=== PATIENT | female | born 1965 | race Caucasian/White ===

== ENCOUNTER 2023-09-24 12:42 | Outpatient (CLI) | payer OTHER, SELFPAY ==
--- OUTSIDE RECORDS SUMMARY | 2023-09-24 12:49 | XMS_ITS | Clinical Summary ---
Author Organization [facility] Address [place], [place] [address] Care Team Providers Care Physician Practice Administrator Name Role Phone Kelvin Peres MD Primary Care Provider Unavailable Allergies No known active allergies Medications Medication Sig Dispensed Refills Start Date End Date Status IBUPROFEN ORAL Take 400 mg by mouth every 4 hours if needed (pain or headache). Active valACYclovir (VALTREX) 1 gram tablet Take 2 tablets by mouth every 12 hours if needed for outbreaks. 12 tablet 3 09/06/2018 Active multivitamin capsule 1 tab oral daily. 03/18/2016 Active valACYclovir (VALTREX) 1 gram tablet Take 1 tablet (1,000 mg total) by mouth 3 (three) times a day for 7 days. 21 Tablet 12/18/2020 Active valACYclovir (VALTREX) 1 gram tablet Take 1 tablet (1,000 mg total) by mouth 3 (three) times a day. 21 Tablet 05/22/2021 Active amoxicillin-clavulana te 875-125 mg tablet (AUGMENTIN) Take 1 tablet by mouth 2 (two) times a day for 7 days. 14 Tablet 08/25/2021 Active benzonatate (TESSALON) 100 mg capsuleIndications:Co ugh, unspecified type Take 1 Capsule (100 mg) by mouth 3 times daily if needed for Cough. 21 Capsule 02/17/2022 Active Active Problems Problem Noted Date Diagnosed Date Premenopausal menorrhagia 02/16/2011 Immunizations Name Administration Dates Next Due Influenza A (H1N1), Inactivated (Age >=3 Years) 05/21/2009 Influenza, IIV3 (Age >=3 years) 03/13/2009 Td (Age >=7 Years) 08/31/2002 Tdap 05/24/2012 Social History Tobacco Use Types Packs/Day Years Used Date Smoking Tobacco: Never Smokeless Tobacco: Never Alcohol Use Standard Drinks/Week Comments Yes 0 (1 standard drink = 0.6 oz pur e alcohol) occasional 1 every week or two Sex and Gender Information Value Date Recorded Sex Assigned at Not on file Gender Identity Not on file Sexual Orientation Not on file Obstetrics History Last Filed Vital Signs Vital Sign Reading Time Taken Comments Blood Pressure 128/67 02/17/2022 2:03 PM DRY PLASTERER Pulse 61 02/17/2022 2:03 PM DRY PLASTERER Temperature 36.8 ??C (98.2 ??F) 02/17/2022 2:03 PM CS T Respiratory Rate 17 02/17/2022 2:03 PM DRY PLASTERER Oxygen Saturation 96% 02/17/2022 2:03 PM DRY PLASTERER Inhaled Oxygen Concentration - - Weight 93.4 kg (206 lb) 02/17/2022 2:03 PM DRY PLASTERER Height 168.5 cm (5' 6.34) 09/26/2018 10:30 AM C DT Body Mass Index 32.91 09/26/2018 10:30 AM CDT Plan of Treatment Health Maintenance Due Date Last Done Comments Depression screening for age 12+ 1978 HIV for age 15-65 1981 BMI (ht and wt on same day) for age 18+ 1984 Hepatitis C screening for ag e 18-79 1984 Pap test for age 21-65 1987 Lipids for age 45-75 2011 Mammogram for age 45-75 2011 Zoster (shingles) series for age 50+ (1 of 2) 2016 Tetanus booster 05/24/2022 05/24/2012, 08/31/2002 COVID-19 vaccine series ( season) 2022 02/19/2021, 07/30/2020, 07/03/2020 Influenza for age 50-64 12/05/2023 05/21/19 10, 03/13/2009 Colonoscopy through age 75 09/26/2028 09/26/2018 Tdap Completed 05/24/2012 Pneumococcal series for age 6-64 Aged Out No longer eligible b ased on patient's age to complete this topic Procedures Procedure Name Priority Date/Time Associated Diagnosis Comments COLONOSCOPY 09/26/2018 12:28 PM CDT from Last 3 Months or Most Recently Relevant to Health Maintenance Results * COLONOSCOPY (09/26/2018 12:28 PM CDT) 09/26/2018 12:2 8 PM CDT Narrative Transcriptions Khang Damian MD - 09/26/2018 1:11 PM CDT Patient Name: Fiordaliza Tsang Procedure Date: 09/26/2018 Gender: Female Date of : 1965 Admit Type: Ambulatory Procedure: Colonoscopy Proceduralist: Khang Damian [facility], Cricket Beckford MD (Treasury Director) Referring MD: Tierney Serrano Indications/Pre-Op Diagnosis: Surveillance: Personal history ofadenomatous polyps on last colonoscopy 5 years ago (also father of colon cancer at age 60) Medications: Propofol per Anesthesia Procedure Description: The procedure, indications, potential complications, (bleeding, perforation, infection, adverse medication reaction, missed lesionsor polyps) and alternatives available were explained to the patient, who appeared to understand and indicated this. Opportunity for questionswas provided and informed consent obtained. The colonoscope was passed through the anus and advanced to 6 cm into the ileum. The colonoscopy was somewhat difficult due to a redundant colon and significant looping. Successful completion of the procedure was aided by applying abdominal pressure. The patient tolerated the procedure well. The quality of the bowel preparation was evaluatedusing the BBPS ([place] Bowel Preparation Scale) with scores of: Right Colon= 3, Transverse Colon = 3 and Left Colon = 3. The total BBPS scoreequals 9. The quality of the bowel preparation was excellent. Complications: No immediate complications. Estimated blood loss: None. Estimated Blood Loss & Specimen: Specimen collected: None Findings: The terminal ileum appeared normal. The entire examined colon appeared normal on direct and retroflexion views. Impressions/Post-Op Diagnosis: - The examined portion of the ileum was normal. - The entire examined colon is normal on direct and retroflexionviews. - No specimens collected. Recommendation: - Repeat colonoscopy in 5 years for surveillance. Moderate Sedation: All monitoring and sedation per anesthesia. Khang Damian, 09/26/2018 1:11:23 PM This report has been signed electronically. Note Initiated On: 09/26/2018 12:28 PM Procedure Code(s): --- Professional --- G0105, Colorectal cancer screening; colonoscopy on individual at high risk Diagnosis Code(s): --- Professional --- Z86.010, Personal history of colonic polyps CPT copyright 2017 [employer]. All rights reserved. The codes documented in this report are preliminary and upon vocational rehabilitation specialist reviewmay be revised to meet current compliance requirements. Khang Damian MD PROCEDURE ORD from Last 3 Months or Most Recently Relevant to Health Maintenance Advance Directives * Full Code (Latest Code Status on File) Date Activated Date Inactivated Comments 09/26/2018 10:46 AM 09/26/2018 4:27 PM * Full Code Date Activated Date Inactivated Comments 07/19/2013 10:00 AM 07/19/2013 7:04 PM * Full Code Date Activated Date Inactivated Comments 02/16/2011 3:56 PM 02/18/2011 12:21 AM * Full Code Date Activated Date Inactivated Comments 02/16/2011 11:15 AM 02/16/2011 3:56 PM Care Teams Physician Practice Administrator Relationship Specialty Start Date End Date Kelvin Peres MD PCP - General 06/20/09
--- OUTSIDE RECORDS SUMMARY | 2023-09-24 12:49 | XMS_ITS | Data Portability ---
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 I reviewed the pathophysiology of the disorder, potential contributing and risk factors as well as treatment options to address their complaints. I discussed the pros and cons of advanced imaging. From a treatment perspective I recommended a rehabilitative treatment approach. Treatment begins with home self management designed to rest the muscles of mastication and reduce inflammation in the temporomandibular joints. This includes heat and ice compresses, eating a soft food or pain-free diet, bilateral chewing identifying and decreasing daytime muscle tension and modification of their sleep position. Today I taught simple jaw exercises designed to improve the jaw mechanics and movement, improve range of mouth opening and improve TM joint fluid circulation to facilitate healing. This includes relaxed breathing and jaw massage. This was both demonstrated and given in written format. Concurrently I taught proper posture.Beyond self management I believe that they would benefit from a mandibular intraoral appliance. I've started her on and today a prescription for medrol dospak and methocarbamol 750 mg qhs, was provided to the patient. The risks and benefits associated with the prescribed medication was discussed with the patient today. Patient was asked to discontinue medication intake and return to clinic if significant side effects were noted from the medication. In addition I've recommended rehabilitation with physical therapy. She will see our physical therapist in [place], where closer to her. I reviewed [employer] [facility] [place]? Medical Policy for diagnosis and treatment of TMD and made the patient aware that this policy requires them to see a medical doctor to rule out a list of other causes for their TMD symptoms and for the doctor to document that the cause of their TMD-like symptoms is due to TMD and no other medical condition. Their medical doctor needs to provide the patient, and us, with this documentation. They were advised to see their medical doctor. They will need to trial a maximum tolerated dose of an NSAID, or similar pain medication. They will also need to have a panoramic radiograph of their maxillofacial region to show internal derangement or ? arthritic changes? , although this radiograph often misses arthritic changes and cannot be used to assess for an internal derangement. Nonetheless, these are the criteria required by their insurance ([facility]) to consider the treatment of their TMD to be medically necessary. Panoramic imaging was obtained at [facility] s appointment. I suggested that they contact their insurance should they have questions regarding their policy or feel the need for further clarification. Finally, I suggested that once they meet these criteria set by their insurance and they have the necessary documentation, that they send this information to me for my review. At that time, we will complete prior authorization for treatment if the documentation is complete. The goal of treatment is to improve pain, function and focus on long-term self-management strategies. I believe that by following these treatment recommendations there is a good prognosis for reduction of symptoms. History was obtained from the patient. The patient has 5+ diagnoses they would like to address. This case is moderate complexity because of multiple diagnoses with chronic symptoms. Risk of complications include progressive disease/symptoms. Today time spent may have included a review of past records, history taking, review of diagnoses, contributing factors, treatment plan, diagnostic testing, prognosis, expectations, risks and complications of treatment/no treatment, discussions with other providers and completing documentation was 60 minutes. Cost of care and insurance coverage was reviewed and discussed with the patient. Due to jaw pain disorder that is aggravated when she talks a lot at work, I am recommending that her job be modified for three weeks by working from home to reduce the amount of talking she has to do. She also needs breaks throughout the workday to do her self-care that I already prescribed for her medications to help reduce her jaw pain. The self-care includes applying heat to her jaw for 20 minutes 3 to 4 times day. kalli Not available 07/30/2022 17:20:03 08/05/2022 08/05/2022 Patient presents to therapy with signs and symptoms consistent with the ICD 10 diagnoses noted below. Main findings include: subacute L TMJ disc displacement with reduction in mid-range. Condition is evolving with moderate irritability and personal factors/comorbidit ies affecting the plan of care (see history section for list of factors). These findings limit the pt from participation in the following functional activities: headaches and pain speaking during workday, . Treatment plan to include reducing myalgia, increasing joint ROM, teaching self management strategies and strengthening to provide long-term symptom reduction. The patient was educated on the risks/benefits of physical therapy and the anatomy pertaining to their present condition. The physical therapy POC and goals were discussed with the patient and all present questions/concerns were addressed. Pt agrees to treatment plan. Rehabilitation potential is good. Treatment to include: therapeutic exercise, manual therapy, neuro muscular re education, therapeutic activities, self care, possible dry needling and modalities as needed. Frequency: will be 2>1/weeks for 6-8 weeks, tapering as able for a total of 6 visits over 2 months. lhovda Not available 08/05/2022 10:55:46 08/21/2022 08/21/2022 Michelle is doing great with resolution of her headaches. Some myalgia remains but I expect this will resolve with another week of working on it. [email or web address] Not available 08/21/2022 09:49:44 08/26/2022 08/26/2022 Dry needling performed today to help resistant L masseter fully relax. Michelle reported feeling better by the end of the session and will let Dr. Johnson know how it was at her followup tomorrow. lhovda Not available 08/26/2022 09:48:23 08/27/2022 08/27/2022 Today I reviewed the diagnosis, contributing factors and treatment options. I reviewed and reinforced continued use of self care and home exercises. I encouraged daily home care use which may consist of heat and ice compresses, oral habit reduction and relaxation techniques. History today was obtained from the patient. The patient has 4 diagnoses which we are addressing. Their symptoms are significantly improved. This case is moderate complexity because of multiple diagnoses with chronic symptoms. Risk of complications include disease/symptom progression were discussed. Today time spent may have included a review of past records, history taking, review of diagnoses, contributing factors, treatment plan, diagnostic testing, prognosis, expectations, risks and complications of treatment/no treatment, discussions with other providers and completing documentation was 35 minutes. I suggested that (s)he return for follow-up care in 2-4 weeks. kalli Not available 08/27/2022 13:07:18 09/08/2022 09/08/2022 Found R side masseter tenderness today, L is much better. Due to this will followup one more time to asses modifications to HEP and treatment performed today. [email or web address] Not available 09/08/2022 17:57:17 Plan of Treatment Reminders Order Date Submit Date Provider Last Modified By Organization Details Last Modified Time Details Appointments None recorded. Lab None recorded. Referral physical therapist referral 2022 023 kalli Del Real PT, [address] [facility], [address], [place], [address], 14:24:51 Procedures None recorded. Surgeries None recorded. Imaging XR, orthopantog jovan 2022 023 [place] [address] [facility] [address], [place], [address], 14:31:13 Medication Orders Medrol (Pablo) 4 mg tablets in a dose pack 2022 023 [facility], [address] [place] [address], [id number], 14:24:59 methocarbam ol 750 mg tablet 2022 023 [facility]57, [address] [place] [address], [id number], 14:24:57 Patient Targets Encounter Date Encounter Id Patient Goals Patient Target Last Modified By Organization Details Last Modified Time Short term goals (to be met in 3 weeks):*Pt will decrease muscle tension and muscle guarding habits through education in order to decrease pain allowing for improved tolerance to eating meals with minimal modification.*Pt will be independent with home exercise program while demonstrating compliance and safety in order to return to prior level of function with goal of 2 point symptom reduction during 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 ovda Not available 08/05/2022 10:55:49 Patient Instructions Encounter Date Encounter Id Patient Instructions Last Modified By Organization Details Last Modified Time 09/08/2022 [id number] Total treatment time minutes today =46 Next Visit Plan: Did R side masseter calm down? L still good? 1 more visit planned. Goals: resolve clicking and headaches. Progress Note Date: 09/16 [email or web address] Not available 09/08/2022 17:58:44 08/26/2022 [id number] Total treatment time minutes today = 30 Next Visit Plan: Reassess and if still doing well, might be ready for DC. Followup in 2 weeks prn. How was Dry needling? Goals: resolve clicking and headaches. Progress Note Date: 09/16 lhovda Not available 08/26/2022 09:49:11 08/21/2022 [id number] Total treatment time minutes today = 35 Next Visit Plan: Reassess and if still doing well, might be ready for DC. Goals: resolve clicking and headaches. Progress Note Date: 09/16 lhovda Not available 08/21/2022 09:51:13 08/05/2022 [id number] Total treatment time minutes today = 45 Next Visit Plan: how is clicking? Less headaches? May need to work on masseter tension NV. Goals: resolve clicking and headaches. Progress Note Date: 09/16 lhovda Not available 08/05/2022 10:55:51 07/30/2022 [id number] Self Care for TMD [email or web address] Not availab le 07/30/2022 14:24:50 Three Jaw Exercises [email or web address] Not available 07/30/2022 14:24:51 oral appliance preparation* STU Not available 07/31/2022 17:53:27 Contributing factors identified at today's appointment include: poor posture, daytime clenching, sleep bruxism, oral habits, stress and tension and difficulty relaxing. [email or web address] Not available 07/30/2022 14:10:30 Reason for Referral Physical Therapist Referral for Pain of left temporomandibular joint Referring Physician: Josafat Johnson, Pain Management, Encounter Date: 07/30/2022 Results Created Date Observation Date Name Description Value Unit Range Abnormal Flag LastModifiedBy Organization Detail LastModifiedTime 07/31/19 23 07/31/2022 XR, ortho panto gram No observ ation record ed. [address], [address], 07/31/2022 17:53:43 08/28/19 oral appli ance prepa ratio n* No observ ation record ed. [email or web address] [address] [place], [address], 08/27/2022 11:08:35 08/28/19 23 oral appli ance prepa ratio n* No observ ation record ed. [address] [facility] [place], [address], 08/27/2022 13:04:22 08/28/19 23 XR, ortho panto gram No observ ation record ed. [email or web address] Not Available 11:26:41 Result Notes None recorded. Problems Name Status Onset Date Resolution Date Notes Provider Name and Address Organization Details Recorded Time Temporal headache Active 2022 headache attributed to TMD PATHAMAS MITTMAN, DDS [address], [place], [address], [place] [facility] 3 14:09:43 Myofascial pain Active 2022 masticatory PATHHALIMA JOHNSON, DDS [address], [place], [address], [facility] 3 14:09:56 Pain of left temporomandibular joint Active 2022 JOSAFAT JOHNSON, DDS [address], [place], [address], [facility] 3 14:09:29 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 Procedures Surgical History Date Name Laterality Status Provider Name and Address Organization Details Recorded Time 09/29/19 23 42231 - PT ReEval cancelled Priti Del Real DPT [address] [facility] [address], [place], [address], [facility] 09/28/2022 08:20:26 09/29/19 23 43882: Self Care/Home Management Training cancelled Priti Del Real DPT [address], [place], [address], [facility] 09/28/2022 08:19:56 09/29/19 23 85361: Therapeutic Exercise cancelled Priti Del Real DPT [address], [place], [address], [facility] 09/28/2022 08:19:56 09/29/19 23 94223: Neuromuscular Re-Education cancelled Priti Del Real DPT [address], [place], [address], [place] [facility] 09/28/2022 08:19:56 09/29/19 92963: Manual Therapy cancelled Priti Del Real, NINOT [address], [place], [address], [place] [facility] 09/28/2022 08:19:56 09/29/19 98376: Therapeutic Activities cancelled Priti Del Real, DPT [address], [place], [address], [place] [facility] 09/28/2022 08:19:56 09/09/19 85968: Therapeutic Exercise completed Priti Del Real, NINOT [address], [place], [address], [facility] 09/08/2022 17:58:34 09/09/19 87518: Manual Therapy completed Priti Del Real, NINOT [address], [place], [address], [place] [facility] 09/08/2022 17:58:40 08/27/1960: Needle insertion(s) without injection(s), 1 or 2 muscle(s) completed Priti Del Real DPT [address], [place], [address], [place] [facility] 08/26/2022 09:49:30 08/27/19 01883: Therapeutic Exercise completed Priti Del Real, DPT [address], [place], [address], [place] [facility] 08/26/2022 09:50:05 08/27/19 86859: Manual Therapy completed Priti Del Real, DPT [address], [place], [address], [facility] 08/26/2022 09:49:44 08/22/19 72287: Therapeutic Exercise completed Priti Del Real, DPT [address], [place], [address], [place] [facility] 08/21/2022 09:51:08 08/22/19 63139: Manual Therapy completed Priti Del Real, DPT [address], [place], [address], [place] [facility] 08/21/2022 09:50:58 08/06/19 88075 - PT Eval Moderate Complexity completed Priti Del Real, DPT [address], [place], [address], [place] [facility] 08/05/2022 10:53:13 08/06/19 80301: Self Care/Home Management Training completed Priti Del Real, DPT [address], [place], [address], [place] [facility] 08/05/2022 10:53:23 08/06/19 13420: Therapeutic Exercise completed Priti Del Real, DPT [address], [place], [address], [place] [facility] 08/05/2022 10:53:19 08/06/19 77308: Manual Therapy completed Priti Del Real, DPT [address], [place], [address], [place] [facility] 08/05/2022 10:53:16 07/31/19 23 Orthopantogram completed JOSAFAT JOHNSON DDS [address], [place], [address], [place] [facility] 07/30/2022 14:04:48 07/21/19 08 procedure on brain [facility] 07/30/2022 10:53:12 Imaging Results Imaging Date Name Status LastModified by Organization Details LastModified Time 07/31/2022 XR, orthopantogram completed kalli Mccrary [address] [facility] [address], [place], [address], 07/31/2022 17:53:43 08/27/2022 oral appliance preparation* completed [email or web address] [address], [place], [address], 08/27/2022 11:08:35 08/27/2022 oral appliance preparation* completed [address] , [place], [address], 08/27/2022 13:04:22 08/27/2022 XR, orthopantogram completed [email or web address] Info rmation not available 08/27/2022 11:26:41 Procedure Notes None recorded. Medical Equipment None Reported. Allergies No known drug allergies Medications Name Sig Start Date Stop Date Status Note LastModified by Organization Details LastModified Time prednisone 20 mg tablet TAKE 2 TABLETS BY MOUTH ONCE DAILY FOR 5 DAYS 07/30 completed Not Available Not Available Not Available methocarbam ol 750 mg tablet TAKE 1 TABLET BY MOUTH ONCE DAILY AT BEDTIME FOR 14 DAYS active Not Available Not Available No t Available benzonatate 100 mg capsule TAKE 1 CAPSULE BY MOUTH THREE TIMES DAILY NEEDED FOR COUGH 07/30 completed Not Available Not Available Not Available methylpredn isolone 4 mg tablets in a dose pack TAKE BY MOUTH DIRECTED ON INSIDE OF PACKAGE - DO NOT TAKE WITH IBUPROFEN active Not Available Not Available No t Available cefdinir 300 mg capsule TAKE 2 CAPSULES BY MOUTH EVERY 24 HOURS FOR 5 DAYS 07/30 completed Not Available Not Available Not Available amoxicillin 875 mg-potassiu m clavulanate 125 mg tablet TAKE 1 TABLET BY MOUTH TWICE DAILY FOR 7 DAYS 07/30 completed Not Available Not Available Not Available cyclobenzap rine 5 mg tablet TAKE 1 TO 2 TABLETS BY MOUTH AT BEDTIME NEEDED FOR MUSCLE SPASM 07/30 completed Not Available Not Available Not Available ibuprofen active Not Available Not Michelle ilable Not Available Flonase Allergy Relief active Not Available Not Available Not Available Vitals Date Recorded Body height Body mass index (BMI) Body weight Provider Name and Address Organization Details Last Updated DateTime 07/30/2022 167.64 cm 33.1 kg/m2 41702.44 g Eileen OLIVARES [facility] 07/30/2022 10:48:13 Date Recorded Body height Body mass index (BMI) Body weight Heart rate Systolic blood pressure Diastolic blood pressure Provider Name and Address Organization Details Last Updated DateTime 167.64 cm 30.7 kg/m2 10767.5 5 g 58 /min 122 mm[Hg] 80 mm[Hg] Eileen OLIVARES [facility] 3 10:34:12 Social History Question Answer Notes LastModified by Kangou Details LastModified Time Tobacco Smoking Status Never Smoker Eileen agosto [facility] 07/30/2022 10:52:25 What Is Your Level Of Alcohol Consumption? Occasional [email or web address] Information not available 07/30/2022 What Is Your Level Of Caffeine Consumption? Occasional [email or web address] Information not available 07/30/2022 What Type Of Diet Are You Following? REGULAR [email or web address] Information not available 07/30/2022 What Is The Highest Grade Or Level Of School You Have Completed Or The Highest Degree You Have Received? [id number] [email or web address] Information not available 07/30/2022 What Is Your Relationship Status? [email or web address] Information not available 07/30/2022 Sex: Female Functional Status Question Answer Note LastModified by Kangou Details LastModified Time What is your exercise level? Occasional [email or web address] Information not available 07/30/2022 Mental Status None recorded. Family History Relationship Description Onset Age of this Age Resolved Age Notes Mother Heart disease Medical History Condition Response Neck Injury Y Back pain Y Head Trauma/Injury Y Headaches Y Back Injury Y Gynecological HistoryNo gynecological history recorded. Obstetrics History GPAL:G 0 P 0 0 0 0 Immunizations Vaccine Type Date Status Provider Name and Address Organization Details Recorded Time influenza nasal, unspecified formulation 01/29/2022 amita agosto [facility] 07/30/2022 10:50:44 SARS-COV-2 (COVID-19) vaccine, UNSPECIFIED 02/25/2022 amita agosto [facility] 07/30/2022 10:51:15 Past Encounters Encounter ID Performer Location Encounter Start Date Encounter Closed Date Diagnosis/Indication Diagnosis SNOMED-CT Code [id number] JOSAFAT JOHNSONJONE [address] 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 3072735179496 9105 Myofascial pain 16253963 9 Pain of le ft temporomandibular joint 0365597545686 9107 Temporal headache 808228 06 [id number] Priti Del Real [place] [address] [place] [address] 08/21/2022 09:12:08 08/21/2022 09:46:28 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 5719225204552 9105 Myofascial pain 85279398 9 Pain of le ft temporomandibular joint 6179480795197 9107 Temporal headache 471220 06 Health Concerns Section Related Observation LastModified by Organization Detai ls LastModified Time None Recorded Concern Status LastModified by Organization Details LastModified Time None Recorded Advance Directives Directive None Recorded Payers Encounter Date Sequence Insurance Name Policy Number Policy [place] Covered Member ID [place] Member ID Guarantor Name 09/08/2022 1 [facility] [id number] Fiordaliza L [place] [id number] Fiordaliza [place] 08/27/2022 1 [facility] [id number] Fiordaliza L [place] [id number] Fiordaliza [place] 08/26/2022 1 [facility] [id number] Fiordaliza L [place] [id number] Fiordaliza [place] 08/21/2022 1 [facility] [id number] Fiordaliza L [place] [id number] Fiordaliza [place] 08/05/2022 1 [facility] [id number] Fiordaliza L [place] [id number] Fi[place] 07/30/2022 1 [facility] [id number] Fi[place]aliza L [place] [id number] Fi[place]iza [place] Notes Date Note Type Note Provider Name and Address Organization Details Recorded Time 07/30/2022 text/html HPI Notes: gener al HPI for jaw, face, TMD pain Reported by patient. Onset: started 6 month(s) ago Location: left Quality: dull; aching Severity: pain level 5-7/10 Duration constant; intermittent daily; lasts hours Symptom triggers: stress; anxiety; chews hard/crunchy/chewy foods; oral habits; dental work; history of trauma to the jaw Aggravating Factors: stress; anxiety; yawning; wide mouth opening; dental work; chewing Alleviating Factors: NSAIDs Associated Symptoms: jaw clicking left; jaw popping left; headaches Prior opinion primary care provider; ENT Patient presents today for evaluation of a possible temporomandibular disorder. These symptoms are chronic and began with no clear triggering events. Previous consultation include evaluation with her primary care provider. Symptoms are left sided only and aggravated by jaw use and function. The patient is not aware of teeth clenching and grinding. Michelle states that 20 plus years ago, she had a jaw injury ( she fell and hit her chin) and since then she has jaw pain was triggered by opening her mouth wild in the dental visit. It seems to be manageable until six months ago. She developed left-sided ear pain and she went to her her physician, who prescribed her antibiotics, which was not helpful for her pain. She was referred to see Dr. Roddy Kaplan, the technology manager, for evaluation with no findings. As result, she was referred to us. She also reports she has daily temporal headache. Her jaw pain worsens over time and exacerbated by eating, talking, jaw function, and dental visits. She has tried analgesics (NSAIDS) to handle her pain, which has never been resolved. JOSAFAT JOHNSON, DDS [address], [place], [address], [facility] 08/03/2022 14:10:21 08/05/2022 text/html HPI Notes: Hannah alejandre presents today for PT evaluation regarding: chronic TMD with L ear pain, Temporal headaches and difficulty during dental procedures. Fell and hit jaw 20 years ago. Occ L ear ringing. Symptoms began: 20+ years ago after a fall Aggravated by: prolonged opening Improved by: limiting speaking Current symptoms are reported at 6/10. Pt was previously able to complete ADLs and IADLs I without limitation or pain. Functional limitations and participation restrictions currently include: *yawning *speaking - worse as day progresses *laughing *oral hygiene *eating Personal factors and/or comorbidities affecting the plan of care include: *Headaches: yes temporal and L frontal *Clenching *Bruxism *Stress *Medications: *Stimulant use: *Medical/Surgical Hx: brain abscess with surgery in 2007, back injury, back pain, head trauma, neck injury. Denies: numbness, tingling, vision changes, swallowing difficulty. 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 Medrol dosepak - no change as of day 5, methocarbamol - no significant change. Ibuprofen helps with KIMBALL more than Medrol but not the jaw. Patient Goals include: resolve the pain. Patient Reported Outcome JFLS-8 (out of 80): 08/04=38 Priti Del Real DPT [address], [place], [address], [facility] 08/05/2022 10:57:14 08/21/2022 text/html HPI Notes: Pt re ports the headaches are gone. Not taking any OTC meds. Priti Del Real DPT [address] [facility] [address], [place], [address], [facility] 08/21/2022 09:51:27 08/26/2022 text/html HPI Notes: Pt re ports still not having HAs, did have one after last session. 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 Priti Del Real DPT [address], [place], [address], [facility] 08/26/2022 09:50:30 08/27/2022 text/html HPI Notes: gener al HPI for jaw, face, TMD pain Reported by patient. Onset: started 6 month(s) ago Location: left Quality: dull; aching Severity: pain level 5-7/10 Duration constant; intermittent daily; lasts hours Symptom triggers: stress; anxiety; chews hard/crunchy/chewy foods; oral habits; dental work; history of trauma to the jaw Aggravating Factors: stress; anxiety; yawning; wide mouth opening; dental work; chewing Alleviating Factors: NSAIDs Associated Symptoms: jaw clicking left; jaw popping left; headaches Prior opinion primary care provider; ENT Patient presents today for follow-up. They report jaw symptoms which are improved since the previous visit. Symptoms and pertinent information along with prior data was reviewed, updated and documented in the patient history of present illness. Patient rates the pain intensity as 2 on a scale of 0 to 10. Patient is engaged in active treatment at this time. Michelle states that she has gone to three physical therapy three sessions. Her headaches have significantly better. When she does massaging exercises she still feels tightness. Overall her pain is 75% improvement. Michelle is here for a follow-up appointment. She saw Priti for dry needling and reports that the dry needling helped. JOSAFAT JOHNSON DDS [address] [facility] [address], [place], [address], [facility] 08/27/2022 13:12:14 09/08/2022 text/html HPI Notes: Pt re ports having a headache and pain after DN for a day and then is better overall. L side not very tender to touch anymore. Priti Del Real DPT [address] [facility] [address], [place], [address], [facility] 09/08/2022 17:58:54 OBGyn Episode No OBEpisode recorded.
--- NOTE | 2023-09-24 13:00 | CRLHL7_ITS ---
For Patients: As a result of the Century Cures Act, medical imaging exams and procedure reports are released immediately into your electronic medical record. You may view this report before your referring provider. If you have questions, please contact your health care provider. BILATERAL DIGITAL SCREENING MAMMOGRAM WITH COMPUTER-AIDED DETECTION AND TOMOSYNTHESIS CLINICAL HISTORY: Routine screening exam. COMPARISON: 08/14/2022, 08/05/2021. TECHNIQUE: Digital mammogram in CC and MLO projections including computer-aided detection (CAD). Tomosynthesis was used in this interpretation. BREAST COMPOSITION: The breasts are heterogeneously dense which may obscure small masses. FINDINGS: RIGHT Breast: No suspicious findings. LEFT Breast: Suspicious mass with architectural distortion and a few scattered microcalcifications upper outer quadrant 5 cm from the nipple. IMPRESSION: LEFT breast asymmetry/mass. RECOMMENDATIONS: Additional mammographic views of the LEFT breast including 3D spot compression CC/MLO. LEFT breast ultrasound may also be required. BI-RADS Category 0: Incomplete: Need Additional Imaging Evaluation and/or Prior Mammograms for Comparison [facility] will contact the patient for follow-up. A lay language report of this examination will be provided to the patient. Dictated by Jose Mclain MD @ 10/04/2023 10:49:52 AM jj/Dictated by: Jose Mclain MD @ 10/04/2023 10:49:00 AM (Electronically Signed)
== END 2023-09-24 12:43 | disposition home or self-care (01) ==
LOC: MAMMO 12:45
PROVIDERS: PCP Family Medicine; Visit Provider Family Medicine
DX: Z12.31 Encounter for screening mammogram for malignant neoplasm of breast (principal); N63.20 Unspecified lump in the left breast, unspecified quadrant
CPT/HCPCS: 77063; 77067

== ENCOUNTER 2023-10-14 11:01 | Outpatient (CLI) | payer OTHER, SELFPAY ==
--- NOTE | 2023-10-14 10:45 | CRLHL7_ITS ---
For Patients: As a result of the Cures Act, medical imaging exams and procedure reports are released immediately into your electronic medical record. You may view this report before your referring provider. If you have questions, please contact your health care provider. DIGITAL DIAGNOSTIC LEFT MAMMOGRAM USING TOMOSYNTHESIS INDICATION: Follow-up a LEFT breast asymmetry. TECHNIQUE: Spot compression view of the LEFT breast in the CC and MLO projection. Digital breast tomosynthesis utilized. COMPARISON: 09/24/2023. 08/14/2022. FINDINGS: Within the upper outer LEFT breast at the 2 o`clock position approximately 5 cm from the nipple is a persistent area of architectural distortion/spiculation. An underlying mass is suspect. Ultrasound is recommended for further characterization subsequently. Please see separate ultrasound report. IMPRESSION: Spiculation/architectural distortion upper outer LEFT breast 2 o`clock position 5 cm from the nipple for which a directed LEFT breast ultrasound is recommended. BI-RADS Category 0: Incomplete - Need Additional Imaging Evaluation A lay language report of this examination will be provided to the patient. Dictated by: Garcia Pace MD @10/14/2023 12:19:09 PM tom/Dictated by: Garcia Pace MD @ 10/14/2023 12:19:00 PM (Electronically Signed)
--- OUTSIDE RECORDS SUMMARY | 2023-10-14 11:03 | XMS_ITS | Clinical Summary ---
Author Organization [employer] [facility] Address [place], [place] [address] Care Team Providers Care Coffee Machine Technician Name Role Phone Kelvin Peres MD Primary [...] Comments Blood Pressure 128/67 02/17/2022 2:03 PM DIESEL ENGINE INSPECTOR Pulse 61 02/17/2022 2:03 PM DIESEL ENGINE INSPECTOR Temperature 36.8 ??C (98.2 ??F) 02/17/2022 2:03 PM CS T Respiratory Rate 17 02/17/2022 2:03 PM DIESEL ENGINE INSPECTOR Oxygen Saturation 96% 02/17/2022 2:03 PM DIESEL ENGINE INSPECTOR Inhaled Oxygen Concentration - - Weight 93.4 kg (206 lb) 02/17/2022 2:03 PM DIESEL ENGINE INSPECTOR Height 168.5 cm (5' 6.34) 09/26/2018 10:30 [...] Type: Ambulatory Procedure: Colonoscopy Proceduralist: Khang Damian [facility], Cricket Beckford MD (Research Center Director) Referring MD: Tierney Serrano Indications/Pre-Op Diagnosis: [...] the bowel preparation was evaluatedusing the BBPS ([place] Bowel Preparation Scale) with scores of: Right [...] history of colonic polyps CPT copyright 2017 [employer]. All rights reserved. The codes documented in this report are preliminary and upon braille coder reviewmay be revised to meet current compliance [...] 11:15 AM 02/16/2011 3:56 PM Care Teams Coffee Machine Technician Relationship Specialty Start Date End Date Kelvin Peres MD PCP - General 06/20/09
--- OUTSIDE RECORDS SUMMARY | 2023-10-14 11:03 | XMS_ITS | Data Portability ---
Author Organization [place] [facility] Address [address] [facility] [address] [place] [address] Care Team Providers Care Stonemason Name Role Phone SHIKHA ANTHONY Referring Provider [phone] DOLLY KAPLAN Referring Provider BRENDAN ALEXANDRE Primary Care Provider Assessment Encounter Date Assessment Date Assessment LastModified by Organization Details LastModified Time 08/05/2022 08/05/2022 Patient presents to therapy with signs and symptoms consistent with the ICD 10 diagnoses noted below. Main findings include: subacute L TMJ disc displacement with reduction in mid-range. Condition is evolving with moderate irritability and personal factors/comorbid ities affecting the plan of care (see history [...] discussed with the patient and all present questions/concer ns were addressed. Pt agrees to treatment plan. [...] Details Last Modified Time Details Appointments None record ed. Lab None record ed. Referral None record ed. Procedures None record ed. Surgeries None record ed. Imaging None record ed. Medication Orders None record ed. Patient Targets Encounter Date Encounter Id Patient [...] goal of 2 point symptom reduction during ADLs.director long term care goals (to be met in 6 weeks):*Patient will report improved score on JFWL by at least 10%, indicating clinically significant improvement in self-reported level of function to allow patient to safely achieve pre-onset level of function.*Ayaan t will demonstrate the ability to open jaw to 40mm IO without compensations, noticeable difficulty or pain greater than 2/10 to be allow for adequate jaw function for chewing food of all types and consistencies without compensation or difficulty. [email or web address] Not available 08/05/2022 10:55:49 Patient Instructions Encounter Date Encounter Id Patient Instructions Last Modified By Organization Details Last Modified Time 08/05/2022 [id number] Total treatment time minutes today = 45 Next Visit Plan: how is clicking? Less headaches? May need to work on masseter tension NV. Goals: resolve clicking and headaches. Progress Note Date: 09/16 [email or web address] Not available 08/05/2022 10:55:51 08/21/2022 [id number] Total treatment time minutes today = 35 Next Visit Plan: Reassess and if still doing well, might be ready for DC. Goals: resolve clicking and headaches. Progress Note Date: 09/16 [email or web address] Not available 08/21/2022 09:51:13 08/26/2022 [id number] Total treatment time minutes today = 30 Next Visit Plan: Reassess and if still doing well, might be ready for DC. Followup in 2 weeks prn. How was Dry needling? Goals: resolve clicking and headaches. Progress Note Date: 09/16 [email or web address] Not available 08/26/2022 09:49:11 09/08/2022 [id number] Total treatment time minutes today =46 Next Visit Plan: Did R side masseter calm down? L still good? 1 more visit planned. Goals: resolve clicking and headaches. Progress Note Date: 09/16 [email or web address] Not available 09/08/2022 17:58:44 Reason for Referral Physical Therapist Referral for Pain of left temporomandibular joint Referring Physician: Josafat Johnson, Pain Management, Encounter Date: 07/30/2022 Results Created Date Observation Date Name Description Value Unit Range Abnormal Flag LastModifiedBy Organization Detail LastModifiedTime 07/31/19 23 07/31/2022 XR, ortho panto gram No observ ation record ed. [address], [place], [address], 07/31/2022 17:53:43 08/28/19 23 oral appli ance prepa ratio n* No observ ation record ed. [email or web address] [address], [place], [address], 08/27/2022 11:08:35 08/28/19 23 oral appli ance prepa ratio n* No observ ation record ed. [address], [place], [address], 08/27/2022 13:04:22 08/28/19 23 XR, ortho panto gram No observ ation record ed. [email or web address] Not Available 11:26:41 Result Notes None recorded. Problems Name Status Onset Date Resolution Date Notes Provider Name and Address Organization Details Recorded Time Temporal headache Active 2022 headache attributed to TMD JOSAFAT JOHNSON DDS [address], [place], [address], [facility] 3 14:09:43 Myofascial pain Active 2022 masticatory JOSAFAT JOHNSON DDS [address], [place], [address], [facility] 3 14:09:56 Pain of left temporomandibular joint Active 2022 JOSAFAT JOHNSON DDS [address], [place], [address], 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 14:10:00 Problem Notes None recorded. Procedures Surgical History Date Name Laterality Status Provider Name and Address Organization Details Recorded Time 09/29/19 89733 - PT ReEval cancelled Priti Del Real, DPT [address], [place], [address], [facility] 09/28/2022 08:20:26 09/29/19 06593: Self Care/Home Management Training cancelled Prtii Del Real, DPT [address], [place], [address], [facility] 09/28/2022 08:19:56 09/29/19 84928: Therapeutic Exercise cancelled Priti Del Real, DPT [address], [place], [address], [facility] 09/28/2022 08:19:56 09/29/19 50977: Neuromuscular Re-Education cancelled Priti Del Real, DPT [address], [place], [address], [facility] 09/28/2022 08:19:56 09/29/19 09282: Manual Therapy cancelled Priti Del Real, DPT [address], [place], [address], [facility] 09/28/2022 08:19:56 09/29/19 19674: Therapeutic Activities cancelled Priti Del Real, DPT [address], [place], [address], [facility] 09/28/2022 08:19:56 09/09/19 71885: Therapeutic Exercise completed Priti Del Real, DPT [address], [place], [address], [facility] 09/08/2022 17:58:34 09/09/19 31442: Manual Therapy completed Priti Del Real DPT [address], [place], [address], [facility] 09/08/2022 17:58:40 08/27/19 20214: Needle insertion(s) without injection(s), 1 or 2 muscle(s) completed Priti Del Real DPT [address], [place], [address], [facility] 08/26/2022 09:49:30 08/27/19 30490: Therapeutic Exercise completed Priti Del Real DPT [address], [place], [address], [facility] 08/26/2022 09:50:05 08/27/19 55908: Manual Therapy completed Priti Del Real DPT [address], [place], [address], [facility] 08/26/2022 09:49:44 08/22/19 24705: Therapeutic Exercise completed Priti Del Real DPT [address], [place], [address], [facility] 08/21/2022 09:51:08 08/22/19 36092: Manual Therapy completed Priti Del Real DPT [address], [place], [address], [facility] 08/21/2022 09:50:58 08/06/19 11408 - PT Eval Moderate Complexity completed Priti Del Real DPT [address], [place], [address], [facility] 08/05/2022 10:53:13 08/06/19 85064: Self Care/Home Management Training completed Priti Del Real DPT [address], [place], [address], [place] [facility] 08/05/2022 10:53:23 08/06/19 23 32557: Therapeutic Exercise completed Priti Del Real DPT [address] [facility] [address], [place], [address], [place] [facility] 08/05/2022 10:53:19 08/06/19 23 30248: Manual Therapy completed Priti Del Real DPT [address] [facility] [address], [place], [address], [place] [facility] 08/05/2022 10:53:16 07/31/19 23 Orthopantogram completed JOSAFAT JOHNSON DDS [address] [facility] [address], [place], [address], [place] [facility] 07/30/2022 14:04:48 07/21/19 08 [facility] on brain [facility] 07/30/2022 10:53:12 Imaging Results Imaging Date Name Status LastModified by Organization Details LastModified Time 07/31/2022 XR, orthopantogram completed [place] [address] [facility] [address] [place], [address], 07/31/2022 17:53:43 08/27/2022 oral appliance preparation* completed [email or web address] [address] [place], [address], 08/27/2022 11:08:35 08/27/2022 oral appliance preparation* completed [place] [address] [facility] [address] [place], [address], 08/27/2022 13:04:22 08/27/2022 XR, orthopantogram completed [email or web address] Info rmation not available 08/27/2022 11:26:41 Procedure [...] and Address Organization Details Last Updated DateTime 3 167.64 cm 30.7 kg/m2 51849.5 5 g 58 /min 122 mm[Hg] 80 mm[Hg] Eileen Retana [facility] 3 10:34:12 Social History Question Answer Notes LastModified by Organizat ion Details LastModified Time Tobacco Smoking Status Never Smoker Eileen Retana [facility] 07/30/2022 10:52:25 What Is Your Level Of Alcohol Consumption? Occasional [email or web address] Information not available 07/30/2022 What Is Your Level Of Caffeine Consumption? Occasional [email or web address] Information not available 07/30/2022 What Type Of Diet Are You Following? REGULAR [email or web address] Information not available 07/30/2022 What Is The Highest Grade Or Level Of School You Have Completed Or The Highest Degree You Have Received? [id number] [email or web address] Information not available 07/30/2022 What Is Your Relationship Status? [email or web address] Information not available 07/30/2022 Sex: Unknown Functional Status Question Answer Note LastModified by Organizat ion Details LastModified Time What is your exercise level? Occasional [email or web address] Information not available 07/30/2022 Mental Status None [...] Recorded Time influenza nasal, unspecified formulation 01/29/[address] [place] [address] [facility] 07/30/2022 10:50:44 SARS-COV-2 (COVID-19) vaccine, UNSPECIFIED 02/25/[address] [facility] 07/30/2022 10:51:15 Past Encounters Encounter ID Performer Location Encounter Start Date Encounter Closed Date Diagnosis/Indication Diagnosis SNOMED-CT Code [id number] JOSAFAT JOHNSON DDS [place] [address] [facility] [address] 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 5372971344565 9105 Myofascial pain 07201560 9 Pain of le ft temporomandibular joint 2497611953032 9107 Temporal headache 700701 06 [id number] Priti Del Real DPT [place] [address] [place] [address] 08/21/2022 09:12:08 08/21/2022 09:46:28 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 7980380620132 9105 Myofascial pain 08788414 9 Pain of le ft temporomandibular joint 4125529880231 9107 Temporal headache 141938 06 Health Concerns Section Related Observation LastModified by Organization Detai ls LastModified Time None Recorded Concern Status LastModified by Organization Details LastModified Time None Recorded Advance Directives Directive None Recorded Payers Encounter Date Sequence Insurance Name Policy Number Policy Inman Covered Member ID Inman Member ID Guarantor Name 08/05/2022 1 [employer] [id number] Fiordaliza Franka [id number] Fiordaliza Hughes 08/21/2022 1 [facility] [id number] Fiordaliza L Pexa [id number] Fiordaliza Pexa 08/26/2022 1 [facility] [id number] Fiordaliza L Pexa [id number] Fiordaliza Pexa 08/27/2022 1 [facility] [id number] Fiordaliza L Pexa [id number] Fiordaliza Pexa 09/08/2022 1 [facility] [id number] Fiordaliza L Pexa [id number] Fiordaliza Pexa Notes Date Note Type Note Provider Name and Address Organization Details Recorded Time 08/05/2022 text/html HPI Notes: Hannah alejandre presents [...] tingling, vision changes, swallowing difficulty. 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 Medrol dosepak - no change as of day 5, methocarbamol - no significant change. Ibuprofen helps with KIMBALL more than Medrol but not the jaw. Patient Goals include: resolve the pain. Patient Reported Outcome JFLS-8 (out of 80): 5=38 Priti Del Real DPT [address] [address], [place], [address], [facility] 08/05/2022 10:57:14 08/21/2022 text/html HPI Notes: Pt reports the headaches are gone. Not taking any OTC meds. Priti Del Real DPT [address] [facility] [address], [place], [address], [facility] 08/21/2022 09:51:27 08/26/2022 text/html HPI Notes: Pt reports still not having HAs, did have one after last session. Overall feeling much better except for tight spot in L masseter that is dye tub tender. Priti Del Real DPT [address] [facility] [address], [place], [address], [facility] 08/26/2022 09:50:30 [...] the dry needling helped. JOSAFAT JOHNSON DDS [address] [facility] [address], [place], [address], [facility] 08/27/2022 13:12:14 09/08/2022 text/html HPI Notes: Pt reports having a headache and pain after DN for a day and then is better overall. L side not very tender to touch anymore. Priti Del Real DPT [address] [facility] [address], [place], [address], [place] [facility] 09/08/2022 17:58:54 OBGyn Episode No OBEpisode recorded.
--- NOTE | 2023-10-14 11:15 | CRLHL7_ITS ---
For Patients: As a result of the Cures Act, medical imaging exams and procedure reports are released immediately into your electronic medical record. You may view this report before your referring provider. If you have questions, please contact your health care provider. LEFT BREAST ULTRASOUND INDICATION: Follow-up LEFT breast lesion described on today`s additional images. TECHNIQUE: Directed LEFT breast ultrasound with this radiologist present. FINDINGS: In the upper outer LEFT breast at the 2 o`clock position 4-5 cm from the nipple is a solid ill-defined hypoechoic irregular 1.8 x 2.4 x 1.8 cm mass with shadowing. This extends toward the chest wall but does not clearly involve the chest wall. Along the superior lateral margin of this mass there is a somewhat bilobed hypoechoic structure nonspecific without shadowing. Although nonspecific, this may reflect an extension of the primary process described above. Ultrasound-guided biopsy of the LEFT breast lesion is recommended. Brief evaluation LEFT axilla does not demonstrate evidence for abnormal appearing or enlarged LEFT axillary lymph nodes. These findings were discussed briefly with the patient. She agrees to this course of action. IMPRESSION: 1. Solid ill-defined hypoechoic shadowing mass upper outer LEFT breast for which biopsy is recommended. 2. Potential extension of this mass along superior lateral radian with a bilobed area of decreased echogenicity. 3. Biopsy will be scheduled next week. BI-RADS Category 5: Highly Suggestive of Malignancy A lay language report of this examination will be provided to the patient. Dictated by: Garcia Pace MD @10/14/2023 12:21:39 PM hermanj/Dictated by: Garcia Pace MD @ 10/14/2023 12:21:00 PM (Electronically Signed)
== END 2023-10-14 11:02 | disposition home or self-care (01) ==
LOC: MAMMO 11:01
PROVIDERS: PCP Family Medicine; Visit Provider Family Medicine
DX: N63.20 Unspecified lump in the left breast, unspecified quadrant (principal); R92.8 Other abnormal and inconclusive findings on diagnostic imaging of breast
CPT/HCPCS: 76642; 77065; G0279

== ENCOUNTER 2023-10-21 08:42 | Outpatient (CLI) | payer OTHER, SELFPAY ==
--- OUTSIDE RECORDS SUMMARY | 2023-10-21 08:47 | XMS_ITS | Clinical Summary ---
Author Organization [facility] Address [place], [place] [address] Care Team Providers Care Video Game Developer Name Role Phone Kelvin Peres MD Primary [...] Comments Blood Pressure 128/67 02/17/2022 2:03 PM CHEMICALS DISTILLER Pulse 61 02/17/2022 2:03 PM CHEMICALS DISTILLER Temperature 36.8 ??C (98.2 ??F) 02/17/2022 2:03 PM CS T Respiratory Rate 17 02/17/2022 2:03 PM CHEMICALS DISTILLER Oxygen Saturation 96% 02/17/2022 2:03 PM CHEMICALS DISTILLER Inhaled Oxygen Concentration - - Weight 93.4 kg (206 lb) 02/17/2022 2:03 PM CHEMICALS DISTILLER Height 168.5 cm (5' 6.34) 09/26/2018 10:30 [...] Type: Ambulatory Procedure: Colonoscopy Proceduralist: Khang Damian [facility], Cricket Beckford MD (Returning Officer) Referring MD: Tierney Serrano Indications/Pre-Op Diagnosis: Surveillance: [...] the bowel preparation was evaluatedusing the BBPS (Seneca Bowel Preparation Scale) with scores of: Right [...] history of colonic polyps CPT copyright 2017 [employer]. All rights reserved. The codes documented in this report are preliminary and upon outpatient coder reviewmay be revised to meet current [...] 11:15 AM 02/16/2011 3:56 PM Care Teams Video Game Developer Relationship Specialty Start Date End Date Kelvin Peres MD PCP - General 06/20/09
--- OUTSIDE RECORDS SUMMARY | 2023-10-21 08:47 | XMS_ITS | Data Portability ---
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 Less headaches? May need to work on masseter tension NV. Goals: resolve clicking and headaches. Progress Note Date: 09/16 [email or web address] Not available 08/05/2022 10:55:51 08/21/2022 [id number] Total treatment time minutes today = 35 Next Visit Plan: Reassess and if still doing well, might be ready for DC. Goals: resolve clicking and headaches. Progress Note Date: 09/16 [email or web address] Not available 08/21/2022 09:51:13 08/26/2022 [id number] Total treatment time minutes today = 30 Next Visit Plan: Reassess and if still doing well, might be ready for DC. Followup in 2 weeks prn. How was Dry needling? Goals: resolve clicking and headaches. Progress Note Date: 09/16 [email or web address] Not available 08/26/2022 09:49:11 09/08/2022 [id number] Total treatment time minutes today =46 Next [...] panto gram No observ ation record ed. [address] [place], [place], [address], 07/31/2022 17:53:43 08/28/19 23 oral appli ance prepa ratio n* No observ ation record ed. [email or web address] [address], [place], [address], 08/27/2022 11:08:35 08/28/19 23 oral appli ance prepa ratio n* No observ ation record ed. [address] [place], [place], [address], 08/27/2022 13:04:22 08/28/19 23 XR, ortho panto gram No observ ation record ed. [email or web address] Not Available 11:26:41 Result Notes None recorded. Problems Name Status Onset Date Resolution Date Notes Provider Name and Address Organization Details Recorded Time Temporal headache Active 2022 headache attributed to TMD JOSAFAT JOHNSON DDS [address], [place], [address], [facility] 3 14:09:43 Myofascial pain Active 2022 masticatory JOSAFAT JOHNSON DDS [address], [place], [address], [facility] 3 14:09:56 Pain of left temporomandibular joint Active 2022 JOSAFAT JOHNSON DDS 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, [place], [address], [facility] 14:10:00 Problem Notes None recorded. Procedures Surgical History Date Name Laterality Status Provider Name and Address Organization Details Recorded Time 09/29/19 05301 - PT ReEval cancelled Priti Del Real, DPT [address], [place], [address], [facility] 09/28/2022 08:20:26 09/29/19 21960: Self Care/Home Management Training cancelled Priti Del Real, DPT [address], [place], [address], [facility] 09/28/2022 08:19:56 09/29/19 25478: Therapeutic Exercise cancelled Priti Del Real, DPT [address], [place], [address], [facility] 09/28/2022 08:19:56 09/29/19 68916: Neuromuscular Re-Education cancelled Priti Del Real, DPT [address], [place], [address], [facility] 09/28/2022 08:19:56 09/29/19 57696: Manual Therapy cancelled Priti Del Real, DPT [address], [place], [address], [facility] 09/28/2022 08:19:56 09/29/19 43129: Therapeutic Activities cancelled Priti Del Real, DPT [address], [place], [address], [facility] 09/28/2022 08:19:56 09/09/19 76007: Therapeutic Exercise completed Priti Del Real, DPT [address], [place], [address], [facility] 09/08/2022 17:58:34 09/09/19 81285: Manual Therapy completed Priti Del Real DPT [address], [place], [address], [facility] 09/08/2022 17:58:40 08/27/19 32193: Needle insertion(s) without injection(s), 1 or 2 muscle(s) completed Priti Del Real DPT [address], [place], [address], [facility] 08/26/2022 09:49:30 08/27/19 65535: Therapeutic Exercise completed Priti Del Real DPT [address], [place], [address], [facility] 08/26/2022 09:50:05 08/27/19 79083: Manual Therapy completed Priti Del Real DPT [address], [place], [address], [facility] 08/26/2022 09:49:44 08/22/19 06018: Therapeutic Exercise completed Priti Del Real DPT [address], [place], [address], [facility] 08/21/2022 09:51:08 08/22/19 81457: Manual Therapy completed Priti Del Real DPT [address], [place], [address], [facility] 08/21/2022 09:50:58 08/06/19 48409 - PT Eval Moderate Complexity completed Priti Del Real DPT [address], [place], [address], [facility] 08/05/2022 10:53:13 08/06/19 34052: Self Care/Home Management Training completed Priti Del Real DPT [address], [place], [address], [place] [facility] 08/05/2022 10:53:23 08/06/19 23 30908: Therapeutic Exercise completed Priti Del Real DPT [address] [facility] [address], [place], [address], [place] [facility] 08/05/2022 10:53:19 08/06/19 23 18798: Manual Therapy completed Priti Del Real DPT [address] [facility] [address], [place], [address], [place] [facility] 08/05/2022 10:53:16 07/31/19 23 Orthopantogram completed JOSAFAT JOHNSON DDS [address] [facility] [address], [place], [address], [place] [facility] 07/30/2022 14:04:48 07/21/19 08 [facility] 07/30/2022 10:53:12 Imaging Results Imaging Date Name Status LastModified by Organization Details LastModified Time 07/31/2022 XR, orthopantogram [facility] [place] [id number] [facility] [address] [place], [address], 07/31/2022 17:53:43 08/27/2022 oral appliance preparation* completed [email or web address] [address] [place], [address], 08/27/2022 11:08:35 08/27/2022 oral appliance preparation* completed [place] [address] [facility] [address] [place], [address], 08/27/2022 13:04:22 08/27/2022 XR, orthopantogram completed [email or web address] Info rmation not available 08/27/2022 11:26:41 Procedure [...] Updated DateTime 3 167.64 cm 30.7 kg/m2 57059.5 5 g 58 /min 122 mm[Hg] 80 mm[Hg] Eileen Retana [facility] 3 10:34:12 Social History Question Answer Notes LastModified by Organizat ion Details LastModified Time Tobacco Smoking Status Never Smoker Eileen Retana [facility] 07/30/2022 10:52:25 What Is Your Level Of Alcohol Consumption? Occasional [email or web address] Information not available 07/30/2022 What Is Your Level Of Caffeine Consumption? Occasional [email or web address] Information not available 07/30/2022 What Type Of Diet Are You Following? REGULAR [email or web address] Information not available 07/30/2022 What Is The Highest Grade Or Level Of School You Have Completed Or The Highest Degree You Have Received? [id number] [email or web address] Information not available 07/30/2022 What Is Your Relationship Status? [email or web address] Information not available 07/30/2022 Sex: Unknown Functional Status Question Answer Note LastModified by Organizat ion Details LastModified Time What is your exercise level? Occasional [email or web address] Information not available 07/30/2022 Mental Status None [...] nasal, unspecified formulation 01/29/2022 completed [place] [facility] 07/30/2022 10:50:44 SARS-COV-2 (COVID-19) vaccine, UNSPECIFIED 02/25/2022 completed [place] [facility] 07/30/2022 10:51:15 Past Encounters Encounter ID Performer Location Encounter Start Date Encounter Closed Date Diagnosis/Indication Diagnosis SNOMED-CT Code [id number] JOSAFAT JOHNSON DDS [place] [address] [facility] 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 2071597922906 9105 Myofascial pain 83293185 9 Pain of le ft temporomandibular joint 1649337689729 9107 Temporal headache 181004 06 [id number] Priti Del Real DPT [place] [address] [place] [address] 08/21/2022 09:12:08 08/21/2022 09:46:28 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 6112588531998 9105 Myofascial pain 18053548 9 Pain of le ft temporomandibular joint 8865372281301 9107 Temporal headache 472026 06 Health Concerns Section Related Observation LastModified by Organization Detai ls LastModified Time None Recorded Concern Status LastModified by Organization Details LastModified Time None Recorded Advance Directives Directive None Recorded Payers Encounter Date Sequence Insurance Name Policy Number Policy Inman Covered Member ID Inman Member ID Guarantor Name 08/05/2022 1 [employer] [id number] Fiordaliza Franka [id number] Fiordaliza Hughes 08/21/2022 1 [facility] [id number] Fiordaliza L [place] [id number] Fiordaliza [place]a 08/26/2022 1 [facility] [id number] Fiordaliza L [place] [id number] Fiordaliza Pexa 08/27/2022 1 [facility] [id number] Fiordaliza L P[place]a [id number] Fiordaliza [place] 09/08/2022 1 [facility] [id number] Fiordaliza L [place] [id number] Fiordaliza [place] Notes Date Note Type [...] tingling, vision changes, swallowing difficulty. 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 Medrol dosepak - no change as of day 5, methocarbamol - no significant change. Ibuprofen helps with KIMBALL more than Medrol but not the jaw. Patient Goals include: resolve the pain. Patient Reported Outcome JFLS-8 (out of 80): 5=38 Priti Del Real DPT [address] [address], [place], [address], [facility] 08/05/2022 10:57:14 08/21/2022 text/html HPI Notes: Pt reports the headaches are gone. Not taking any OTC meds. Priti Del Real DPT [address] [facility] [address], [place], [address], [facility] 08/21/2022 09:51:27 08/26/2022 text/html HPI Notes: Pt reports still not having HAs, did have one after last session. Overall feeling much better except for tight spot in L masseter that is [employer]. Priti Del Real DPT [address] [facility] [address], [place], [address], [facility] 08/26/2022 09:50:30 [...] dry needling helped. JOSAFAT JOHNSON DDS [address] [facility] [address], [place], [address], [facility] 08/27/2022 13:12:14 09/08/2022 text/html HPI Notes: Pt reports having a headache and pain after DN for a day and then is better overall. L side not very tender to touch anymore. Priti Del Real DPT [address] [facility] [address], [place], [address], [place] [facility] 09/08/2022 17:58:54 OBGyn Episode No OBEpisode recorded.
--- NOTE | 2023-10-21 09:15 | CRLHL7_ITS ---
For Patients: As a result of the Century Cures Act, medical imaging exams and procedure reports are released immediately into your electronic medical record. You may view this report before your referring provider. If you have questions, please contact your health care provider. ULTRASOUND-GUIDED BREAST BIOPSY AND POST-BIOPSY DIGITAL MAMMOGRAM FOR BIOPSY MARKER PLACEMENT CLINICAL HISTORY: Suspicious mass. COMPARISON STUDIES: 10/14/2023. TECHNIQUE: Real-time ultrasound with image documentation was used for targeting the breast lesion. Core biopsy specimens were obtained using an automated gun with an 18-gauge biopsy needle. Post-biopsy CC and ML digital mammograms were obtained to document position of the biopsy marker. CONSENT and TIME OUT: The procedure, risks, and alternatives were explained to the patient and a consent was signed. [place] Protocol was followed including pre-procedure verification that relevant information/documentation was available, reviewed and properly matched to the patient; consent accurate and complete; and equipment and supplies available. Time Out was conducted just prior to starting procedure to verify the four required elements: patient identity, correct side/site marked (if applicable), procedure, relevant images/results properly labeled and displayed (if applicable). PROCEDURE: The patient was positioned supine on the ultrasound table. The breast was prepped with ChloraPrep. 8 cc of 1 percent lidocaine used for local anesthesia. Core samples were obtained. A sterile metal biopsy clip was placed percutaneously to cecily the lesion position within the breast. The specimens were placed in 10% formalin and sent to the pathology department. Pressure was held on the biopsy site until all bleeding subsided. The skin incision was closed with Steri-Strips. An ice pack was positioned over the biopsy site. Post-biopsy instructions were reviewed with the patient, and a written copy was given to her. LATERALITY: LEFT breast. LESION: Hypoechoic microlobulated solid mass with distal acoustic shadowing measuring 18 x 24 x 18 millimeters at 2 o`clock 4 cm from the nipple. SUSPICION FOR MALIGNANCY: High. NUMBER OF SAMPLES: 5. BIOPSY CLIP SHAPE: Oval. PROXIMITY OF CLIP TO TARGET: Within the lesion. IMPRESSION: Ultrasound-guided breast biopsy. When the pathology report is available, an addendum to this report will be made. ACR not applicable Dictated by Jose Mclain MD @ 10/21/2023 12:18:44 PM jj/Dictated by: Jose Mclain MD @ 10/21/2023 12:18:00 PM (Electronically Signed)
--- NOTE | 2023-10-21 10:00 | CRLHL7_ITS ---
For Patients: As a result of the Century Cures Act, medical imaging exams and procedure reports are released immediately into your electronic medical record. You may view this report before your referring provider. If you have questions, please contact your health care provider. PLEASE SEE ULTRASOUND-GUIDED LEFT BREAST BIOPSY PERFORMED SAME DAY CRL:tom santos/Dictated by: Jose Mclain MD @ 10/21/2023 12:18:00 PM (Electronically Signed)
== END 2023-10-21 08:43 | disposition home or self-care (01) ==
LOC: US 08:42
PROVIDERS: PCP Family Medicine; Visit Provider Family Medicine
DX: N63.20 Unspecified lump in the left breast, unspecified quadrant (principal); C50.912 Malignant neoplasm of unspecified site of left female breast; R92.8 Other abnormal and inconclusive findings on diagnostic imaging of breast
CPT/HCPCS: 19083; 77065; 88305; 88360; 88361; A4648; A4649

== ENCOUNTER 2023-11-09 15:02 | Outpatient (CLI) | payer OTHER, SELFPAY | END 2023-11-09 15:03 | disposition home or self-care (01) | PROVIDERS: PCP Family Medicine; Visit Provider Family Medicine | DX: Z01.818 Encounter for other preprocedural examination (principal); Z13.6 Encounter for screening for cardiovascular disorders | CPT/HCPCS: 80048; 80061; 85025 ==

== ENCOUNTER 2023-11-25 06:40 | Day surgery (SDC) | payer OTHER, SELFPAY ==
[2023-11-25] VITALS (21 sets, daily range): BP systolic 114–127; BP diastolic 62–84; PULSE 59–92; RESP 16; TEMP 36.1–36.7; O2SAT 94–99; BMI 32.9
--- OUTSIDE RECORDS SUMMARY | 2023-11-25 06:40 | XMS_ITS | Data Portability ---
Author Organization [facility] Address [address] [place] [address] Care Team Providers Care Cementer Machine Applicator Name Role Phone SHIKHA ANTHONY Referring Provider DOLLY KAPLAN Referring Provider [phone] BRENDAN ALEXANDRE Primary Care Provider Assessment Encounter [...] goal of 2 point symptom reduction during ADLs.long term care social worker goals (to be met in 6 weeks):*Patient [...] By Organization Details Last Modified Time 08/05/2022 [id number] Total treatment time minutes today = 45 Next Visit Plan: how is clicking? Less headaches? May need to work on masseter tension NV. Goals: resolve clicking and headaches. Progress Note Date: 09/16 [email or web address] Not available 08/05/2022 10:55:51 08/21/2022 [id number] Total treatment time minutes today = 35 Next Visit Plan: Reassess and if still doing well, might be ready for DC. Goals: resolve clicking and headaches. Progress Note Date: 09/16 [email or web address] Not available 08/21/2022 09:51:13 08/26/2022 [id number] Total treatment time minutes today = 30 Next Visit Plan: Reassess and if still doing well, might be ready for DC. Followup in 2 weeks prn. How was Dry needling? Goals: resolve clicking and headaches. Progress Note Date: 09/16 [email or web address] Not available 08/26/2022 09:49:11 09/08/2022 [id number] Total treatment time minutes today =46 Next [...] panto gram No observ ation record ed. [address], [place], [address], 07/31/2022 17:53:43 08/28/19 23 oral appli ance prepa ratio n* No observ ation record ed. [email or web address] [address], [place], [address], 08/27/2022 11:08:35 08/28/19 23 oral appli ance prepa ratio n* No observ ation record ed. [address], [place], [address], 08/27/2022 13:04:22 08/28/19 23 XR, ortho panto gram No observ ation record ed. [email or web address] Not Available 11:26:41 Result Notes None recorded. Problems Name Status Onset Date Resolution Date Notes Provider Name and Address Organization Details Recorded Time Temporal headache Active 2022 headache attributed to TMD JOSAFAT JOHNSON DDS [address], [place], [address], [facility] 3 14:09:43 Myofascial pain Active 2022 masticatory JOSAFAT JOHNSON DDS [address], [place], [address], [facility] 3 14:09:56 Pain of left temporomandibular joint Active 2022 JOSAFAT JOHNSON DDS [address], [place], [address], [facility] 3 14:09:29 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 Procedures Surgical History Date Name Laterality Status Provider Name and Address Organization Details Recorded Time 09/29/19 21909 - PT ReEval cancelled Priti Del Real, DPT [address], [place], [address], [facility] 09/28/2022 08:20:26 09/29/19 88230: Self Care/Home Management Training cancelled Priti Del Real, DPT [address], [place], [address], [facility] 09/28/2022 08:19:56 09/29/19 02980: Therapeutic Exercise cancelled Priti Del Real, DPT [address], [place], [address], [facility] 09/28/2022 08:19:56 09/29/19 44659: Neuromuscular Re-Education cancelled Priti Del Real, DPT [address], [place], [address], [facility] 09/28/2022 08:19:56 09/29/19 78529: Manual Therapy cancelled Priti Del Real, DPT [address], [place], [address], [facility] 09/28/2022 08:19:56 09/29/19 25964: Therapeutic Activities cancelled Priti Del Real, DPT [address], [place], [address], [facility] 09/28/2022 08:19:56 09/09/19 06182: Therapeutic Exercise completed Priti Del Real, DPT [address], [place], [address], [facility] 09/08/2022 17:58:34 09/09/19 23829: Manual Therapy completed Priti Del Real DPT [address], [place], [address], [facility] 09/08/2022 17:58:40 08/27/19 59155: Needle insertion(s) without injection(s), 1 or 2 muscle(s) completed Priti Del Real DPT [address], [place], [address], [facility] 08/26/2022 09:49:30 08/27/19 49218: Therapeutic Exercise completed Priti Del Real DPT [address], [place], [address], [facility] 08/26/2022 09:50:05 08/27/19 12775: Manual Therapy completed Priti Del Real DPT [address], [place], [address], [facility] 08/26/2022 09:49:44 08/22/19 12519: Therapeutic Exercise completed Priti Del Real DPT [address], [place], [address], [facility] 08/21/2022 09:51:08 08/22/19 24151: Manual Therapy completed Priti Del Real DPT [address], [place], [address], [facility] 08/21/2022 09:50:58 08/06/19 75736 - PT Eval Moderate Complexity completed Priti Del Real DPT [address], [place], [address], [facility] 08/05/2022 10:53:13 08/06/19 33507: Self Care/Home Management Training completed Priti Del Real DPT [address], [place], [address], [place] [facility] 08/05/2022 10:53:23 08/06/19 23 99481: Therapeutic Exercise completed Priti Del Real DPT [address] [facility] [address], [place], [address], [place] [facility] 08/05/2022 10:53:19 08/06/19 23 00447: Manual Therapy completed Priti Del Real DPT [address] [facility] [address] [facility] [address], [place], [address], [place] [facility] 08/05/2022 10:53:16 07/31/19 23 Orthopantogram completed JOSAFAT JOHNSON DDS [address] [facility] [address], [place], [address], [place] [facility] 07/30/2022 14:04:48 07/21/19 08 procedure on brain [facility] 07/30/2022 10:53:12 Imaging Results Imaging Date Name Status LastModified by Organization Details LastModified Time 07/31/2022 XR, orthopantogram completed [place] [id number] [facility] [address] [place], [address], 07/31/2022 17:53:43 08/27/2022 oral appliance preparation* completed [email or web address] [address] [place], [address], 08/27/2022 11:08:35 08/27/2022 oral appliance preparation* completed [place] [id number] [facility] [address] [place], [address], 08/27/2022 13:04:22 08/27/2022 XR, orthopantogram completed [email or web address] Info rmation not available 08/27/2022 11:26:41 Procedure [...] Updated DateTime 3 167.64 cm 30.7 kg/m2 99908.5 5 g 58 /min 122 mm[Hg] 80 mm[Hg] Eileen Retana [facility] 3 10:34:12 Social History Question Answer Notes LastModified by Organizat ion Details LastModified Time Tobacco Smoking Status Never Smoker Eileen Retana [facility] 07/30/2022 10:52:25 What Is Your Level Of Alcohol Consumption? Occasional [email or web address] Information not available 07/30/2022 What Is Your Level Of Caffeine Consumption? Occasional [email or web address] Information not available 07/30/2022 What Type Of Diet Are You Following? REGULAR [email or web address] Information not available 07/30/2022 What Is The Highest Grade Or Level Of School You Have Completed Or The Highest Degree You Have Received? [id number] [email or web address] Information not available 07/30/2022 What Is Your Relationship Status? [email or web address] Information not available 07/30/2022 Sex: Unknown Functional Status Question Answer Note LastModified by Organizat ion Details LastModified Time What is your exercise level? Occasional [email or web address] Information not available 07/30/2022 Mental Status None recorded. Family History Relationship Description Onset Age of this Age Resolved Age Notes Mother Heart disease Medical History Condition Response Neck Injury Y Back pain Y Back Injury Y Head Trauma/Injury Y Headaches Y Gynecological HistoryNo gynecological history recorded. Obstetrics History GPAL:G 0 P 0 0 0 0 Immunizations Vaccine Type Date Status Provider Name and Address Organization Details Recorded Time influenza nasal, unspecified formulation 01/29/2022 completed [place] [facility] 07/30/2022 10:50:44 SARS-COV-2 (COVID-19) vaccine, UNSPECIFIED 02/25/2022 completed [place] Hall [facility] 07/30/2022 10:51:15 Past Encounters Encounter ID Performer Location Encounter Start Date Encounter Closed Date Diagnosis/Indication Diagnosis SNOMED-CT Code [id number] JOSAFAT JOHNSON DDS [place] [address] [facility] 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 5557346664518 9105 Myofascial pain 96806868 9 Pain of le ft temporomandibular joint 3646380528897 9107 Temporal headache 458517 06 [id number] Priti Del Real DPT [place] [address] [place] [address] 08/21/2022 09:12:08 08/21/2022 09:46:28 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 4346836288574 9105 Myofascial pain 94864574 9 Pain of le ft temporomandibular joint 1691787290453 9107 Temporal headache 652809 06 Health Concerns Section Related Observation LastModified by Organization Detai ls LastModified Time None Recorded Concern Status LastModified by Organization Details LastModified Time None Recorded Advance Directives Directive None Recorded Payers Encounter Date Sequence Insurance Name Policy Number Policy Inman Covered Member ID Inman Member ID Guarantor Name 08/05/2022 1 [employer] [id number] Fiordaliza Franka [id number] Fiordaliza Hughes 08/21/2022 1 [facility] [id number] Fiordaliza L [place] [id number] Fiordaliza Pexa 08/26/2022 1 [facility] [id number] Fiordaliza L P[place]a [id number] Fiordaliza P[place]a 08/27/2022 1 [facility] [id number] Fiordaliza L P[place] [id number] Fiordaliza P[place]a 09/08/2022 1 [facility] [id number] Fiordaliza L P[place] [id number] Fiordaliza P[place] Notes Date Note Type [...] tingling, vision changes, swallowing difficulty. 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 Medrol dosepak - no change as of day 5, methocarbamol - no significant change. Ibuprofen helps with KIMBALL more than Medrol but not the jaw. Patient Goals include: resolve the pain. Patient Reported Outcome JFLS-8 (out of 80): 5=38 Priti Del Real DPT [address] [address], [place], [address], [facility] 08/05/2022 10:57:14 08/21/2022 text/html HPI Notes: Pt reports the headaches are gone. Not taking any OTC meds. Priti Del Real DPT [address] [facility] [address], [place], [address], [facility] 08/21/2022 09:51:27 08/26/2022 text/html HPI Notes: Pt reports still not having HAs, did have one after last session. Overall feeling much better except for tight spot in L masseter that is sliver lap tender. Priti Del Real DPT [address] [facility] [address], [place], [address], [facility] 08/26/2022 [...] dry needling helped. JOSAFAT JOHNSON DDS [address] [facility] [address], [place], [address], [facility] 08/27/2022 13:12:14 09/08/2022 text/html HPI Notes: Pt reports having a headache and pain after DN for a day and then is better overall. L side not very tender to touch anymore. Priti Del Real DPT [address] [facility] [address], [place], [address], [place] [facility] 09/08/2022 17:58:54 OBGyn Episode No OBEpisode recorded.
[2023-11-25] MEDS: LACTATED RINGERS 1000 ML 1,000 ML 100 ML IV ×2 (06:55→09:11)
[2023-11-25] MEDS: SODIUM CHLORIDE 0.9 % (FLUSH) 10 ML SYRINGE IVF ×2 (06:58→23:10)
--- NOTE | 2023-11-25 08:00 | CRLHL7_ITS ---
For Patients: As a result of the Century Cures Act, medical imaging exams and procedure reports are released immediately into your electronic medical record. You may view this report before your referring provider. If you have questions, please contact your health care provider. NM SENTINEL LYMPH NODE INJECTION 11/25/2023 INDICATION: LEFT-sided breast cancer. Injection for sentinel lymph node scintigraphy. Informed consent was obtained by the on-site staff. They discussed the risks and benefits of the procedure. The patient agreed to proceed. Hector Protocol: A. Pre-procedure verification complete: Yes 1-relevant information/documentation available, reviewed and properly matched to the patient; 2-consent accurate and complete, 3-equipment and supplies available. B. Site marking complete: Yes Site marked if not in continuous attendance with patient. C. TIME OUT completed: Yes Time Out was conducted just prior to starting procedure to verify the eight required elements: 1-patient identity, 2-consent accurate and complete, 3-position, 4-correct side/site marked (if applicable), 5-procedure, 6-relevant images/results properly labeled and displayed (if applicable), 7-antibiotics/irrigation fluids (if applicable), 8-safety precautions, 9-laboratory results were reviewed. Utilizing sterile technique and 1 percent xylocaine for local anesthetic, 510 microcuries of technetium filtered sulfur colloid was injected within an intradermal location superolateral to the LEFT nipple areolar complex. The patient tolerated the injection well. No immediate complications. No subsequent imaging. IMPRESSION: Technically successful injection of the LEFT breast for sentinel lymph node scintigraphy. Garcia Pace M.D. Diagnostic/Nuclear Medicine Radiologist [email or web address] Transcribed: 10:43 am DW/Dictated by: Garcia Pace MD @ 11/25/2023 9:49:00 AM (Electronically Signed)
--- NOTE | 2023-11-25 09:01 | W.PM.H&PU ---
History & Physical Update History & Physical Update H&P Reviewed and patient assessed: No changes noted
[2023-11-25] MEDS: CEFAZOLIN 2 GM INJ IVP (09:10)
[2023-11-25] MEDS: ISOSULFAN BLUE 5 ML VIAL INJECTION (09:15)
--- NOTE | 2023-11-25 10:21 | CRLHL7_ITS ---
For Patients: As a result of the Cures Act, medical imaging exams and procedure reports are released immediately into your electronic medical record. You may view this report before your referring provider. If you have questions, please contact your health care provider. LEFT BREAST SPECIMEN CLINICAL HISTORY: Mastectomy, LEFT breast cancer. COMPARISON: 10/21/2023. FINDINGS: Two views of the LEFT breast specimens submitted. Biopsied mass is present along with the biopsy clip. IMPRESSION: The mass and clip are both present in the specimen. ACR not applicable. A lay language report of this examination will be provided to the patient. Dictated by Jose Mclain MD @ 11/25/2023 11:22:08 AM /jamar/cristina SP/Dictated by: Jose Mclain MD @ 11/25/2023 11:22:00 AM (Electronically Signed)
--- NOTE | 2023-11-25 12:02 | PM.GSPRC ---
Operative Note Date of procedure: 11/25/23 Pre-op diagnosis: Invasive ductal carcinoma, left breast Post-op diagnosis: Same Type of Procedure: Bilateral mastectomy, left axillary sentinel lymph node biopsy Indications: Patient is a 58-year-old female who presented to clinic with a new diagnosis invasive ductal carcinoma. Please see consultation note for full discussion. Risks and benefits of operative intervention were discussed at length with the patient. Risks included but was not limited to: Bleeding, infection, risk of damage to surrounding structures, possible need for additional procedures, risk of hematoma, seroma, injury to an axillary nerve, lymphedema and postoperative complications such as pneumonia, pulmonary emboli or IN. All questions and concerns were addressed with the patient agreeing to proceed. Procedure Description: Prior to proceeding to the operating room patient had injection of a nuclear titrate slur by nuclear medicine in the left breast. The patient was then brought to the operating room and intubated by anesthesia. Pectoralis blocks were performed bilaterally. The surgical field was prepped and draped in standard sterile fashion. A timeout was taken for patient safety. I injected 5 cc of lymphazurin blue in the patient's left breast. I then performed breast massage for a period of 5 minutes. I performed an elliptical incision a round the nipple-areolar complex on the left breast and started by dissecting the subcutaneous tissues using electrocautery. The breast flaps were created circumferentially, dissecting all the breast tissue off of the overlying skin superiorly up to the clavicle, medially to the lateral border of the sternum, laterally out to the latissimus and inferiorly to the inferior aspect of the breast fold. Once flaps had been raised in all 4 directions down to the level of the fascia, the breast was taken off of the chest wall. I included the fascia in my dissection. The underlying pectoralis muscle was inspected and hemostasis was appreciated. The breast was removed through the incision and marked with a short stitch superior and a long stitch lateral. It was sent to pathology for immediate assessment. The tumor was identified with a core biopsy site. Margins were negative around the identified tumor. I then proceeded to take out the sentinel lymph nodes through the mastectomy incision. Using the Neoprobe I identified a blue, hot sentinel lymph node. This was passed off for a frozen evaluation, which came back as no evidence of malignancy. Background counts in the axilla were low. I then proceeded to perform the contralateral prophylactic mastectomy in the same fashion. I made an elliptical incision around the nipple-areolar complex on the right breast and started by dissecting the subcutaneous tissues using electrocautery. The breast flaps were created circumferentially, dissecting all the breast tissue off of the overlying skin superiorly up to the clavicle, medially to the lateral border of the sternum, laterally out to the latissimus and inferiorly to the inferior aspect of the breast fold. Once flaps had been raised in all 4 directions down to the level of the fascia, the breast was taken off of the chest wall. I included the fascia in my dissection. The breast was removed through the incision and marked with a short stitch superior and a long stitch lateral. Bilateral 15 Faroese THIAGO drains were placed on the right and left. These were secured with 2-0 nylon suture. The incision sites were then closed in layers with interrupted 3 0 Vicryl and running 4-0 Monocryl stitch. Sterile dressings were then applied. ? The patient was then woken and transported to the recovery area in stable condition. ? The patient tolerated the procedure well. Findings: Left breast with identified tumor in core biopsy site, margins negative. Left axillary sentinel lymph node benign. Anesthesia: GETA Surgeon: Lupe Winn MD Estimated blood loss (mL): 25 Additional Specimen Information: 1. Left breast 2. Left axillary sentinel lymph node 3. Right breast Disposition: PACU Lynch Node Biopsy for Breast Cancer Operation Performed with Curative Intent: Yes Tracers used to Identify sentinel nodes in the upfront surgery (non-neoadjuvant) setting: Dye and Radioactive Tracer Tracers used to identify sentinel nodes in the neoadjuvant setting: N/A All nodes (colored or non-colored) present at the end of a dye filled lymphatic channel were removed: Yes All significantly radioactive nodes were removed: Yes All palpably suspicious nodes were removed: Yes Biopsy proven positive nodes marked with clips prior to chemotherapy were identified and removed: Not Applicable
--- NOTE | 2023-11-25 12:18 | W.ANESCHARGE ---
Anesthesia Charges Start Date/Time Anesthesia Start Date: 11/25/23 Anesthesia Start Time: 08:53 Stop Date/Time Anesthesia Stop Date: 11/25/23 Anesthesia Stop Time: 12:17
[2023-11-25] MEDS: fentaNYL 100 MCG/2 ML inj 50 MCG IVP ×2 (12:28→12:45)
[2023-11-25] MEDS: HYDROmorphone 0.5 mg/0.5 ml inj IVP ×2 (12:40→14:31)
--- NOTE | 2023-11-25 13:15 | W.ANESCHARGE ---
Anesthesia Charges Start Date/Time Anesthesia Start Date: 11/25/23 Anesthesia Start Time: 08:53 Stop Date/Time Anesthesia Stop Date: 11/25/23 Anesthesia Stop Time: 12:17
--- NOTE | 2023-11-25 13:16 | W.PM.NB ---
Nerve Block Nerve Block Time Seen by Provider: 09:00 Date Seen: 11/25/23 Type of block requested by surgeon for post-operative analgesia: intercostal and intercostal add on Side: bilateral Time out performed: Yes Verification of patient name: Yes Verification of date of : Yes Site marking: site marked Continuous monitoring Was continuous monitoring of O2 sat, B/P, cardiac/vascular sonographer, recorded every 15 minutes?: Yes Procedure Checklist: sterile prep, needles and gloves Ultrasound guided. Images saved: Yes Medications given in 5ml increments after negative aspiration: Marcaine %: 0.25 mL: 20 Needle gauge: 20 and Exparel mL: 20 Patient tolerated procedure well: Yes Block Charges Block Charge (with Pro Fee): Intercostal Nerve Block Use of Ultrasound Machine for Block: Yes- US Guidance/pain block
[2023-11-25] MEDS: ACETAMINOPHEN 325 MG TABLET 650 MG PO (13:39)
[2023-11-25] MEDS: ONDANSETRON 2 MG/ML inj IVP ×2 (17:34→23:10)
[2023-11-25] MEDS: KETOROLAC 15 MG/ML inj IVP (23:09)
[2023-11-26 03:00] VITALS: BP 119/64; PULSE 62; RESP 16; TEMP 37; O2SAT 95
--- NOTE | 2023-11-26 04:22 | PC.NURSE ---
Shift note: Pt is alert and oriented, doing well ambulating with A1 to SBA with walker. Pain level rated between 2 and 4. 1[place] [address]. THIAGO drain amount to 65ml for both. RICHARD wrap to the thoracic area. No drainage, bleeding or discharges. Vitally stable. Adequate urine output, greenish in color.
[2023-11-26] MEDS: KETOROLAC 15 MG/ML inj IVP (07:00)
[2023-11-26 09:04] VITALS: BP 131/75; PULSE 86; RESP 16; TEMP 36.6; O2SAT 94
[2023-11-26] MEDS: HYDROCODONE-ACETAMIN 5-325 MG 1 TAB PO (09:10)
--- NOTE | 2023-11-26 09:28 | PM.DS1 ---
DS: Providers Provider Date Seen: 11/26/23 Primary care physician: Jose Ching MD Attending Physician on discharge: Lupe Winn MD DS: Summary Hospital Course Hospital Course: Patient underwent a bilateral mastectomy with left sentinel lymph node biopsy. She was admitted overnight. At the time of discharge her pain was well controlled, she was ambulating without difficulty and tolerating a regular diet. She was educated on how to manage her drains and record the output. Will plan to follow up with the patient next week in clinic. Time Spent with Patient Time attestation: Total time spent providing and/or coordinating discharge services: Exam Narrative: Exam Narrative: General: Alert and oriented, no acute distress Respiratory: Equal breath rise bilaterally, maintained on room air Breast: Bilateral mastectomy incisions with Steri-Strips in place. Flaps well perfused with no significant can not ecchymoses and no concern for ischemia. No seroma or hematoma. Bilateral THIAGO drains with minimal dark sanguinous output. Const: Vital Signs, click to edit/add: Vital Signs - 24 hr 11/25/23 12:13 11/25/23 12:20 11/25/23 12:25 Temperature 97 F L Pulse Rate 91 92 86 Pulse Rate [Pulse Oximeter] Respiratory Rate 16 16 16 Blood Pressure 119/76 116/68 116/69 Blood Pressure [Ri ght Arm] Pulse Oximetry 96 97 96 Oxygen Delivery Me thod Room Air Room Air Room Air 11/25/23 12:30 11/25/23 12:35 11/25/23 12:40 Temperature 97.6 F Pulse Rate 81 84 80 Pulse Rate [Pulse Oximeter] Respiratory Rate 16 16 16 Blood Pressure 116/69 117/71 120/70 Blood Pressure [Ri ght Arm] Pulse Oximetry 97 94 99 Oxygen Delivery Me thod Room Air Room Air Room Air 11/25/23 12:45 11/25/23 13:00 11/25/23 13:15 Temperature 97.3 F L 97.4 F L Pulse Rate 80 81 76 Pulse Rate [Pulse Oximeter] Respiratory Rate 16 16 16 Blood Pressure 116/64 121/69 120/80 Blood Pressure [Ri ght Arm] Pulse Oximetry 99 97 95 Oxygen Delivery Me thod Room Air Room Air Room Air 11/25/23 13:30 11/25/23 13:30 11/25/23 13:45 Temperature 97.4 F L 97.4 F L 97.4 F L Pulse Rate 81 81 81 Pulse Rate [Pulse Oximeter] Respiratory Rate 16 16 16 Blood Pressure 116/67 121/71 Blood Pressure [Ri ght Arm] Pulse Oximetry 95 97 97 Oxygen Delivery Me thod Room Air Room Air Room Air 11/25/23 14:00 11/25/23 14:30 11/25/23 15:00 Temperature 97.4 F L 97.3 F L Pulse Rate 61 71 74 Pulse Rate [Pulse Oximeter] Respiratory Rate 16 16 16 Blood Pressure 121/63 120/68 117/62 Blood Pressure [Ri ght Arm] Pulse Oximetry 95 96 Oxygen Delivery Me thod Room Air Room Air Room Air 11/25/23 16:00 11/25/23 16:00 11/25/23 17:00 Temperature 97.6 F 97.4 F L Pulse Rate 62 79 Pulse Rate [Pulse Oximeter] Respiratory Rate 16 16 16 Blood Pressure 115/68 114/65 Blood Pressure [Ri ght Arm] Pulse Oximetry 98 98 99 Oxygen Delivery Me od Room Air Room Air Room Air 11/25/23 18:00 11/25/23 19:59 11/25/23 23:00 Temperature 97.5 F L 97.5 F L Pulse Rate 70 70 Pulse Rate [Pulse Oximeter] Respiratory Rate 16 16 16 Blood Pressure 120/76 117/78 Blood Pressure [Ri ght Arm] Pulse Oximetry 96 96 Oxygen Delivery Me od Room Air Room Air 11/25/23 23:00 11/25/23 23:00 11/25/23 23:04 Temperature 97.6 F 97.6 F Pulse Rate Pulse Rate [Pulse Oximeter] Respiratory Rate 16 16 16 Blood Pressure Blood Pressure [Ri ght Arm] 115/67 Pulse Oximetry 95 95 95 Oxygen Delivery Me thod Room Air Room Air Room Air 11/26/23 03:00 11/26/23 09:04 11/26/23 09:04 Temperature 98.6 F 97.9 F Pulse Rate Pulse Rate [Pulse Oximeter] 62 86 86 Respiratory Rate 16 16 16 Blood Pressure Blood Pressure [Ri ght Arm] 119/64 131/75 Pulse Oximetry 95 94 Oxygen Delivery Me od Room Air Room Air 11/26/23 09:04 Temperature Pulse Rate Pulse Rate [Pulse Oximeter] Respiratory Rate 16 Blood Pressure Blood Pressure [Ri ght Arm] Pulse Oximetry 94 Oxygen Delivery Me thod Room Air Discharge Plan Discharge Disposition: Home w/ Parent or Adult Discharging Surgeon: Lupe Winn Follow-Up Appointment: 12/01 at [facility] clinic Prescriptions: New hydrocodone-acetaminophen 5-325 mg tablet 1 tab PO Q6H PRN (Reason: pain) Qty: 20 0RF ondansetron 4 mg tablet,disintegrating 4 mg PO Q6H Qty: 20 0RF senna 8.6 mg capsule 8.6 mg PO DAILY PRN (Reason: constipation) Qty: 90 0RF Continued acyclovir 400 mg tablet 400 mg PO DAILY PRN melatonin 10 mg capsule 10 mg PO HS PRN omega 6-xmg-ezy-fish oil [Fish Oil] 1,200 (144-216) mg capsule 1 cap PO DAILY multivitamin Tablet 1 tab PO DAILY calcium carbonate 500 mg calcium (1,250 mg) tablet 1,000 mg PO DAILY cholecalciferol (vitamin D3) 25 mcg (1,000 unit) tablet 25 mcg PO DAILY DDR Prime 1 cap PO QDAY trazodone 50 mg tablet 50 mg PO HS PRN (Reason: sleep) Activity Level: No strenuous activity Activity Detail: Activity as tolerated. Avoid strenuous activity. No lifting greater than 20 lb for 2 weeks. Discharge Diet: Regular Patient Instructions: Deep Sedation (DC), Post-Operative Instructions: Breast Surgery Additional Instructions: You were prescribed a narcotic pain medication. In addition you may supplement with Tylenol and/or ibuprofen. Be sure to not exceed greater than 4 g of Tylenol in a 24 hour period. While on narcotic pain medicine please take stool softeners. A prescription of stool softeners has been sent to the pharmacy. Stop if having greater than 2 stools per day. You have Steri-Strips dressings in place, allow these to fall off on their own. Please continue to wear Brian wrap as much as possible while your drains remain in place. You are okay to shower. Do not soak in a bath or swim for 2 weeks. Continue to monitor your THIAGO drain output. Make sure your recording your daily totals. Your drains can be removed once the output is less than 20 mL per day. If you have 2 consecutive days of less than 20 mL per day please call my nurse at [phone] to have the drains removed. Follow-up with Dr. Winn on 12/02/2023. Please call if you are experiencing severe pain, nausea, vomiting, difficulty urinating, fever or not had a bowel movement in 4 days after surgery. For after our emergencies you can call [phone] to speak with the on-call surgeon. Follow-up: Lupe Winn MD [Staff Physician] - 12/02/23 1:45 pm ([facility] for follow up ) Jose Ching MD [Primary Care Provider] - Discharge Orders: Discharge Order (Routine); Ordered 11/26/23 Ordered By: Lupe Winn
[2023-11-26 11:35] VITALS: BP 116/56; PULSE 69; RESP 14; TEMP 36.6; O2SAT 94
--- NOTE | 2023-11-26 14:21 | PC.NURSE ---
Discharge: Patient pleasant and cooperative. Patient vitally stable, lungs clear, BS WNL, IV removed, catheter intact. Patient SBA with walker. Patient rates pain at most 4/10, 1 tab of norco given once. Patient urinating well and tolerating regular diet. Bilateral breast incision C/D/I, with no drainage. Education given on draining THIAGO drains, 30cc total emptied this shift. Patient was given output tracker sheet for home. Patient signed belongings sheet and discharge form. All questions patient and family had were answered. Patient left the floor to home by wheelchair at 1342.
== END 2023-11-26 13:42 | disposition home or self-care (01) ==
LOC: MEDSURG 08:03 → SS 13:55 → MEDSURG 13:56
PROVIDERS: PCP Family Medicine; Visit Provider Surgery
PROC: (CPT 19303; principal; 2023-11-25 09:00)
PROC: (CPT 19303; 2023-11-25 09:00)
DX: C50.912 Malignant neoplasm of unspecified site of left female breast (principal); G89.18 Other acute postprocedural pain
CPT/HCPCS: 19303; 38525; 01610; 38792; 64420; 64421; 76942; 88307; 88377; A9270; A9541; C9290; J0330; J0665; J0690; J1100; J1170; J1885; J2250; J2405; J3010; J7120

== ENCOUNTER 2024-01-12 13:39 | Outpatient (CLI) | payer OTHER, SELFPAY ==
--- OUTSIDE RECORDS SUMMARY | 2024-01-12 13:45 | XMS_ITS | Data Portability ---
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 Less headaches? May need to work on masseter tension NV. Goals: resolve clicking and headaches. Progress Note Date: 09/16 [email or web address] Not available 08/05/2022 10:55:51 08/21/2022 [id number] Total treatment time minutes today = 35 Next Visit Plan: Reassess and if still doing well, might be ready for DC. Goals: resolve clicking and headaches. Progress Note Date: 09/16 [email or web address] Not available 08/21/2022 09:51:13 08/26/2022 [id number] Total treatment time minutes today = 30 Next Visit Plan: Reassess and if still doing well, might be ready for DC. Followup in 2 weeks prn. How was Dry needling? Goals: resolve clicking and headaches. Progress Note Date: 09/16 [email or web address] Not available 08/26/2022 09:49:11 09/08/2022 [id number] Total treatment time minutes today =46 Next [...] Name Description Value Unit Range Abnormal Flag Note LastModifiedBy Organization Detail LastModifiedTime 07/31/19 23 07/31/2022 XR, ortho panto gram No observ ation record ed. [address] [place], [place], [address], 07/31/2022 17:53:43 08/28/19 23 oral appli ance prepa ratio n* No observ ation record ed. [email or web address] [address] [place], [place], [address], 08/27/2022 11:08:35 08/28/19 23 oral appli ance prepa ratio n* No observ ation record ed. [address] [place], [place], [address], 08/27/2022 13:04:22 08/28/19 23 XR, ortho panto gram No observ ation record ed. [email or web address] Not Available 11:26:41 Result Notes None recorded. Problems Name Problem SNOMED Code Status Onset Date Resolution Date Notes Provider Name and Address Organization Details Recorded Time Temporal headache 22894343 Active 2022 headache attribute d to TMD JOSAFAT JOHNSON DDS [address], [place], [address], [facility] 3 14:09:43 Myofascia l pain 478334791 Active 2022 masticato ry JOSAFAT JOHNSON DDS [address], [place], [address], [facility] 3 14:09:56 Pain of left temporoma ndibular joint 984026171862 07445 Active 2022 JOSAFAT JOHNSON DDS [address], [place], [address], [facility] 3 14:09:29 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, [place], [address], [facility] 14:10:00 Problem Notes None recorded. Procedures Surgical History Date Name Laterality Status Provider Name and Address Organization Details Recorded Time 09/29/19 96540 - PT ReEval cancelled Priti Del Real, DPT [address], [place], [address], [facility] 09/28/2022 08:20:26 09/29/19 03950: Self Care/Home Management Training cancelled Priti Del Real, NINOT [address] [facility] [address], [place], [address], [facility] 09/28/2022 08:19:56 09/29/19 23 60604: Therapeutic Exercise cancelled Priti Del Real DPT [address] [facility] [address], [place], [address], [facility] 09/28/2022 08:19:56 09/29/19 23 73074: Neuromuscular Re-Education cancelled Priti Del Real, NINOT [address], [place], [address], [facility] 09/28/2022 08:19:56 09/29/19 23 75213: Manual Therapy cancelled Priti Del Real, NATHEN [address], [place], [address], [facility] 09/28/2022 08:19:56 09/29/19 23 23487: Therapeutic Activities cancelled Priti Del Real DPT [address], [place], [address], [facility] 09/28/2022 08:19:56 09/09/19 23 13632: Therapeutic Exercise completed Priti Del Real DPFredrick [address], [place], [address], [place] [facility] 09/08/2022 17:58:34 09/09/19 11147: Manual Therapy completed Priti Del Real, DPT [address], [place], [address], [place] [facility] 09/08/2022 17:58:40 08/27/19 55778: Needle insertion(s) without injection(s), 1 or 2 muscle(s) completed Priti Del Real, DPT [address], [place], [address], [place] [facility] 08/26/2022 09:49:30 08/27/19 00609: Therapeutic Exercise completed Priti Del Real, DPT [address], [place], [address], [place] [facility] 08/26/2022 09:50:05 08/27/19 57420: Manual Therapy completed Priti Del Real, DPT [address], [place], [address], [place] [facility] 08/26/2022 09:49:44 08/22/19 46713: Therapeutic Exercise completed Priti Del Real, DPT [address], [place], [address], [place] [facility] 08/21/2022 09:51:08 08/22/19 42135: Manual Therapy completed Priti Del Real, DPT [address], [place], [address], [place] [facility] 08/21/2022 09:50:58 08/06/19 14928 - PT Eval Moderate Complexity completed Priti Del Real, DPT [address], [place], [address], [place] [facility] 08/05/2022 10:53:13 08/06/19 66315: Self Care/Home Management Training completed Priti Del Real, NINOT [address], [place], [address], [place] [facility] 08/05/2022 10:53:23 08/06/19 23 91723: Therapeutic Exercise completed Priti Del Real, DPT [address], [place], [address], [place] [facility] 08/05/2022 10:53:19 08/06/19 23 02535: Manual Therapy completed Priti Del Real, DPT [address], [place], [address], [place] [facility] 08/05/2022 10:53:16 07/31/19 23 Orthopantogram completed JOSAFAT JOHNSON DDS [address], [place], [address], [place] [facility] 07/30/2022 14:04:48 07/21/19 08 procedure on brain completed Eileen Reatna [facility] 07/30/2022 10:53:12 Imaging Results Imaging Date Name Status LastModified by Organization Details LastModified Time 07/31/2022 XR, orthopantogram completed [address], [address], 07/31/2022 17:53:43 08/27/2022 oral appliance preparation* completed [email or web address] [address] [place], [address], 08/27/2022 11:08:35 08/27/2022 oral appliance preparation* completed [address] [place], [address], 08/27/2022 13:04:22 08/27/2022 XR, orthopantogram completed [email or web address] Info rmation not available 08/27/2022 11:26:41 Procedure [...] Updated DateTime 3 167.64 cm 30.7 kg/m2 85915.5 5 g 58 /min 122 mm[Hg] 80 mm[Hg] Eileen Retana [facility] 3 10:34:12 Social History Question Answer Notes LastModified by Organizat ion Details LastModified Time Tobacco Smoking Status Never Smoker Eileen Retana [facility] 07/30/2022 10:52:25 What Is Your Level Of Alcohol Consumption? Occasional [email or web address] Information not available 07/30/2022 What Is Your Level Of Caffeine Consumption? Occasional [email or web address] Information not available 07/30/2022 What Type Of Diet Are You Following? REGULAR [email or web address] Information not available 07/30/2022 What Is The Highest Grade Or Level Of School You Have Completed Or The Highest Degree You Have Received? [id number] [email or web address] Information not available 07/30/2022 What Is Your Relationship Status? [email or web address] Information not available 07/30/2022 Sex: Unknown Functional Status Question Answer Note LastModified by Organizat ion Details LastModified Time What is your exercise level? Occasional [email or web address] Information not available 07/30/2022 Mental Status None recorded. Family History Relationship Description Onset Age of this Age Resolved Age Notes LastModified by Organization Details LastModified Time Mother Heart disease [email or web address] Not available 10:51:38 Medical History Condition Response Neck Injury Y Back pain Y Head Trauma/Injury Y Headaches Y Back Injury Y Gynecological HistoryNo gynecological history recorded. Obstetrics History GPAL:G 0 P 0 0 0 0 Immunizations Vaccine Type Date Status Provider Name and Address Organization Details Recorded Time influenza nasal, unspecified formulation 01/29/2022 completed MARSH[place] Hall [facility] 07/30/2022 10:50:44 SARS-COV-2 (COVID-19) vaccine, UNSPECIFIED 02/25/2022 completed [place] Hall [facility] 07/30/2022 10:51:15 Past Encounters Encounter ID Performer Location Encounter Start Date Encounter Closed Date Diagnosis/Indication Diagnosis SNOMED-CT Code Diagnosis ICD10 Code [id number] JOSAFAT MICHELLEJONE TRISTAN [address] 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 6633731690 4516767 M26.631 Myofascial pain 17278444 9 M79.11 Pain of le ft temporomandibular joint 0074532672 3774320 M26.622 Temporal headache 784996 06 R51.9 [id number] Priti Del Real, DPT [place] [address] [place] [address] 08/21/2022 09:12:08 08/21/2022 09:46:28 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 8661918159 9514988 M26.631 Myofascial pain 98491046 9 M79.11 Pain of le ft temporomandibular joint 4716480532 5655147 M26.622 Temporal headache 047967 06 R51.9 Health Concerns Section Related Observation LastModified by Organization Detai ls LastModified Time None Recorded Concern Status LastModified by Organization Details LastModified Time None Recorded Advance Directives Directive None Recorded Payers Encounter Date Sequence Insurance Name Policy Number Policy Inman Covered Member ID Inman Member ID Guarantor Name 08/05/2022 1 [facility] [id number] Fiordaliza L P[place] [id number] Fi[place]aliza [place] 08/21/2022 [id number] Fiordaliza L [place] [id number] Fiordaliza [place] 08/26/2022 1 [facility] [id number] Fiordaliza L [place] [id number] Fiordaliza [place] 08/27/2022 1 [facility] [id number] Fiordaliza L [place] [id number] Fiordaliza [place] 09/08/2022 1 [facility] [id number] Fiordaliza L [place]a [id number] Fiordaliza P[place] Notes Date Note Type [...] *Medical/Surgical Hx: brain abscess with surgery in 2008, back injury, back pain, head trauma, neck injury. Denies: numbness, tingling, vision changes, swallowing difficulty. 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 Medrol dosepak - no change as of day 5, methocarbamol - no significant change. Ibuprofen helps with KIMBALL more than Medrol but not the jaw. Patient Goals include: resolve the pain. Patient Reported Outcome JFLS-8 (out of 80): 08/04=38 Priti Del Real DPT [address], [place], [address], [facility] 08/05/2022 10:57:14 08/21/2022 text/html HPI Notes: Pt reports the headaches are gone. Not taking any OTC meds. Priti Del Real DPT [address], [place], [address], [facility] 08/21/2022 09:51:27 08/26/2022 text/html HPI Notes: Pt reports still not having HAs, did have one after last session. 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 Priti Del Real DPT [address], [place], [address], [facility] 08/26/2022 [...] the dry needling helped. JOSAFAT JOHNSON DDS [address], [place], [address], [facility] 08/27/2022 13:12:14 09/08/2022 text/html HPI Notes: Pt reports having a headache and pain after DN for a day and then is better overall. L side not very tender to touch anymore. Priti Del Real DPT [address], [place], [address], [facility] 09/08/2022 17:58:54 OBGyn Episode No OBEpisode recorded.
--- OUTSIDE RECORDS SUMMARY | 2024-01-12 13:45 | XMS_ITS | Clinical Summary ---
Author Organization [facility] Address [place], [place] [address] Care Team Providers Care Toxicology Supervisor Name Role Phone Jose Ching MD Primary Care Provider + Allergies No known active allergies Medications Medication [...] Noted Date Diagnosed Date Premenopausal menorrhagia 02/16/2011 Encounters Date Type Department Care Team Description 01/03/2024 12:20 PM CDT Orders Only [facility] [address] [facility] [place] [phone] Lab, [facility] 01/02/2024 Travel 11/25/2023 Lab Requisition [facility] [phone] Lupe Winn MD 11/25/2023 Lab Requisition [facility] [phone] Lupe Winn MD 11/25/2023 Lab Requisition [facility] [phone] Lupe Winn MD 11/08/2023 1:00 PM CDT Telemedicine [facility] [address] [place] [address] Delores Pisano, , CGC Counseling (Cancer genetic counseling) 11/02/2023 Telephone [facility] [address] [place] [id number] Flor [facility] 11/01/2023 Transcribe Orders [facility] [address] [place] [address] Lupe Winn MD 10/21/2023 Lab Requisition [facility] [phone] Jose Ching MD from Last 3 Months Immunizations Name Administration Dates Next Due Influenza [...] Comments Blood Pressure 128/67 02/17/2022 2:03 PM [employer] Pulse 61 02/17/2022 2:03 PM [employer] Temperature 36.8 ??C (98.2 ??F) 02/17/2022 2:03 PM CS T Respiratory Rate 17 02/17/2022 2:03 PM [employer] Oxygen Saturation 96% 02/17/2022 2:03 PM [employer] Inhaled Oxygen Concentration - - Weight 93.4 kg (206 lb) 02/17/2022 2:03 PM [employer] Height 168.5 cm (5' 6.34) 09/26/2018 10:30 [...] 05/24/2012, 08/31/2002 COVID-19 vaccine series ( season) 2023 02/19/2021, 07/30/2020, 07/03/2020 Influenza for age 50-64 12/05/2023 05/21/19 10, 03/13/2009 Colonoscopy through age 75 09/26/2028 09/26/2018 Tdap Completed 05/24/2012 Pneumococcal series for age 6-64 Aged Out No longer eligible b ased on patient's age to complete this topic Procedures Procedure Name Priority Date/Time Associated Diagnosis Comments LAB TRACKING EVENT Routine 11/25/2023 11 :25 AM CDT PATH TISSUE EXAM Routine 11/25/2023 10:0 5 AM CDT MSO AP SEND-OUT Routine 11/25/2023 10:05 AM CDT CG HER2 BREAST Routine 11/25/2023 10:05 AM CDT CYTOGENETICS MALIGNANT TISSUE Routine 11/25/2023 10:05 AM CDT LAB TRACKING EVENT Routine 10/21/2023 9: 21 AM CDT PATH BREAST CORE BIOPSY Routine 10/21/2023 9:21 AM CDT COLONOSCOPY 09/26/2018 12:28 PM CDT from Last 3 Months or Most Recently Relevant to Health Maintenance Results * LAB TRACKING EVENT (11/25/2023 11:25 AM CDT) Only the most recent of2 resultswithin the time period is included. Other (Other) Client Collect / Unknown 11/25/2023 11:25 AM CDT 11/25/2023 9:52 PM CDT Lupe Winn MD LAB BILL ONLY Performing Organization Address [facility] Co de Phone Number [facility] [address] [place] [address], * MSO AP SEND-OUT (11/25/2023 10:05 AM CDT) Other (Left Breast Mastectomy) 11/25/2023 10:05 AM CDT 12/07/2023 2:50 PM CDT Lupe Winn MD LABORATORY Performing Organization Address [facility] Co de Phone Number [facility] [address] [place] [address], [place] * CG HER2 BREAST (11/25/2023 10:05 AM CDT) Other (Left Breast Mastectomy) 11/25/2023 10:05 AM CDT 11/29/2023 5:42 PM CDT Lupe Winn MD LABORATORY Performing Organization Address [facility] Co de Phone Number [facility] LAB[facility]ATORY [address] [place] [address], * CYTOGENETICS MALIGNANT TISSUE STUDIES (11/25/2023 10:05 AM CDT) RFR Breast cancer 12/02/2023 3:35 PM CDT [facility] TEST & RESULT SUMMARY HER2 FISH Breast: See pathology report [id number]. See comments. 12/02/2023 3:35 PM CDT [facility] NTRAL LABORATORY _ 12/02/2023 3:35 PM CDT [facility] LABORATORY-CE [facility] LABORATORY COMMENTS This record is used as an internal laboratory test designed for workflow purposes only. 12/02/2023 3:35 PM CDT [facility] LABORAT[facility]-CE NTRAL LABORATORY SOURCE Left Breast Mastectomy (Paraffin Slides A3 2 uns) [id number] 12/02/2023 3:35 PM CDT [facility] LAB[facility] Other (Left Breast Mastectomy) 11/25/2023 10:05 AM CDT 11/29/2023 5:42 PM CDT Lupe Winn MD LABORATORY [facility]-CENTRAL LABORATORY [address] [place] [address], * PATH TISSUE EXAM (11/25/2023 10:05 AM CDT) Case Report Pathology Report ?Case: [id number] ? Authorizing Provider: ??Lupe Winn MD ??Collected: ? 11/25/2023 1005 ? Ordering Location: ? [facility] ?Received: ?11/26/2023 0813 ? Pathologist: ? Alda Connelly MD ? Specimens: ?? A) - Left Breast Mastectomy, weight 477g ? B) - Left Breast Dunn Node ? C) - Right Breast Mastectomy, weight 408 ? 12/14/2023 5:23 PM CDT [facility]ORAT[facility]-C ENTRAL LABORATORY Amendment 12/02/2023 - Amendment issued to incorporate ancillary HER2 FISH studies. 12/14/2023 - Per Dr Boateng, tissue was submitted to [employer] for Oncotype DX Breast Cancer testing, please see attached scanned report for results. 12/14/2023 5:23 PM CDT [facility] LABOR[facility]-C ENTRAL LABORATORY Final Diagnosis A) LEFT BREAST, MASTECTOMY: 1. Invasive ductal carcinoma, Allendale grade III of III (see comment) ?a. Size: 21 mm ?b. Core biopsy site is associated with tumor 2. Ductal carcinoma in situ (DCIS), nuclear grades 2 and 3, solid type 3. Margins: ?a. Invasive carcinoma and DCIS are both greater than 10 mm from all margins 4. Breast Ancillary Testing: Performed on prior case ([id number]) ?a. Hormone Receptors: ?Estrogen receptor: Positive (96%, strong staining) ?Progesterone receptor: Positive (87%, moderate staining) ?b. HER2 by IHC: Negative (1+ by manual morphometry) ?c. Ki-67: 21% 5. Repeat HER2 by FISH: Negative ?HER2/CEP17 ratio: 1.02 ?HER2 signals/cell: 1.56 ?CEP17 signals/cell: 1.52 6. Lobular carcinoma in situ (LCIS), classic type 7. Atypical lobular hyperplasia (ALH) 8. Benign nipple B) LEFT AXILLARY SENTINEL LYMPH NODE, EXCISION: 1. Negative for metastatic malignancy in one lymph node (0/1) C) RIGHT BREAST, PROPHYLACTIC MASTECTOMY: 1. Benign breast tissue with proliferative fibrocystic changes 2. Benign nipple 3. Negative for atypia and malignancy 12/14/2023 5:23 PM CDT [facility]-C ENTRAL LABORATORY Amendment electronically signed by Alda Connelly MD on 12/14/2023 at 5:23 PM Amendment electronically signed by Dago Murphy MD on 12/02/2023 at 5:19 PM Comment A) The tumor is of a higher histologic grade than what was seen on the prior core biopsy ([id number]) due to a greater number of mitoses. As such, HER2 testing will be repeated on the current case. 12/14/2023 5:23 PM CDT [facility]-C ENTRAL LABORATORY Clinical Information Left breast invasive ductal carcinoma, Allendale grade II ([id number]). 12/14/2023 5:23 PM CDT [facility]-C ENTRAL LABORATORY Gross Description A) Received fresh for intraoperative consultation, labeled with the patient's name and left breast mastectomy, is a 477 gram, 19.5 (SI) x 17.5 (ML) x 3.5 (AP) cm oriented left mastectomy specimen without axillary contents. There is an attached 5.3 (ML) x 3.3 (SI) cm portion of skin with a 1.1 x 1.1 x 0.8 cm everted nipple and 4.4 surrounding areola. No skin scars or lesions are identified. ??The margins are inked as follows: Anterior-superior Blue Anterior-inferior Red Posterior Black The specimen is serially sectioned from medial to lateral, revealing 2.4 (SI) x 2.0 (AP) x 1.8 (ML) cm pink firm stellate mass at the 2 o'clock position approximately 4 cm from nipple. ??The mass is 1.7 cm from the closest anterior-superior margin, 3.1 cm from the anterior-inferior margin and 1.8 cm from the posterior margin. ??Within the mass is a biopsy site and metallic coiled clip. ??Surrounding the mass is dense fibrous tissue measuring approximately 8 (ML) x 6.5 (SI) x 3.5 (AP). ??The fibrous tissue comes within 0.5 cm of the anterior-superior margin and 1.7 cm from the posterior margin. The remaining specimen has 60% yellow adipose tissue and 40% pink fibrous tissue. ??No definitive additional lesions are identified. Bleaching Machine Operator sections are submitted as follows: ?? 1. ?? Nipple, perpendicular and nipple bed, en face 2. ?? Breast tissue without inked margins, superior bracket section 3-4. Breast mass without inked margins spanning 2.4 (SI) cm in greatest dimension 5. ?? Breast tissue without inked margin, inferior bracket section 6. ?? Breast mass with closest anterior-superior margin, perpendicular 7. ?? Breast mass with closest posterior margin, perpendicular 8. ?? Breast tissue without inked margins, 1 cm medial to mass 9. ?? Breast tissue without inked margins, medial bracket section 10. ??Beginning of mass without inked margins, towards medial 11. ??Mass with biopsy site without inked margins 12. ??Ending of mass without inked margins, towards lateral 13. ??Breast tissue without inked margins, lateral bracket section 14. ??Breast tissue without inked margins, 1 cm lateral to mass 15. ??Upper inner quadrant, random sections, without inked margins 16. ??Lower inner quadrant, random sections, without inked margins 17. ??Upper outer quadrant, random sections, without inked margins 18. ??Lower outer quadrant, random sections, without inked margins 19. ??Fibrous tissue adjacent to mass with closest anterior-superior margin, perpendicular 20-21. Fibrous tissue without inked margins, 2 cm medial to mass 22. ??Breast tissue with closest anterior/inferior margin, perpendicular Specimen images have been uploaded. ([place] ink on superior aspect of tissue slices for orientation, not true margin) Time removed from patient: 1005 Time placed in formalin: 1045 ? Date removed and placed in formalin: 11/25/2023 Cold ischemic time < 60 minutes. The specimen was fixed in formalin for a minimum of 6 hours and not longer than 72 hours. TRS 11/26/2023 B) Received fresh for intraoperative consultation, labeled with the patient's name and left breast sentinel node is a 1.6 x 1.3 x 0.6 cm portion of adipose tissue, within which a 0.7 x 0.6 x 0.3 cm jasso lymph node is identified. The lymph node is submitted in toto for frozen section analysis. The frozen tissue remnant is entirely submitted in one cassette. Time removed from patient: 1044 Time placed in formalin: 1105 Date removed and placed in formalin: 11/25/2023 Cold ischemic time < 60 minutes. The specimen was fixed in formalin for a minimum of 6 hours and not longer than 72 hours. TRS 11/26/2023 C) Received fresh, labeled with the patient's name and right breast mastectomy, is a 408 gram, 14.5 (M-L) x 14.5 (S-I) x 3.5 (A-P) cm oriented simple breast mastectomy specimen without attached axillary contents. There is an attached 6.2 (ML) x 3.0 (SI) cm portion of skin with a 1.2 x 0.9 x 0.7 cm everted nipple and 4.0 cm surrounding areola. No skin scars or lesions are identified. ??The specimen is inked as follows: Anterior-superior : Blue Anterior-inferior : Red Posterior: Black The specimen is serially sectioned revealing a 13 (ML) x 9 (SI) x 5 (AP) cm fibrocystic band throughout the specimen accounting for 50% of the total volume. ??No discrete mass lesions or biopsy sites are identified. No lymph nodes are identified grossly. Bleaching Machine Operator sections are submitted as follows: 1. ?? Nipple, perpendicular and nipple bed, en face 2-3. Upper outer quadrant without inked margins 4-5. Lower outer quadrant without inked margins 6-7. Upper inner quadrant without inked margins 8-9. Lower inner quadrant without inked margins 10. ??Inked deep margin mid specimen Time removed from patient: 1125 Time placed in formalin: 1130 Date removed and placed in formalin: 11/25/2023 Cold ischemic time < 60 minutes. The specimen was fixed in formalin for a minimum of 6 hours and not longer than 72 hours. TRS 11/26/2023 12/14/2023 5:23 PM CDT [facility] LABORATORY-C ENTRAL LABORATORY Intraoperative Consultation A) LEFT BREAST, MASTECTOMY, INTRAOPERATIVE CONSULTATION (Gross Evaluation Only): 1. Tumor identified grossly 2. Biopsy site change identified grossly 3. Margins are grossly negative (closest is anterior-superior ) 4. The mastectomy specimen weighs 477 grams Pk Xavier MD, 11/26/2023 8:51 AM B) LEFT AXILLARY SENTINEL LYMPH NODE, BIOPSY, INTRAOPERATIVE CONSULTATION WITH FROZEN SECTION: [Number of frozen sections prepared: 1] 1. A single lymph node is identified and is negative for malignancy Pk Xavier MD, 11/26/2023 8:52 AM Intraoperative consultation, which may have included frozen section preparation, gross specimen examination, and/or cytology touch imprints/smears, was performed by a pathologist during the surgical procedure. ??This testing was performed at: [address] [address] 12/14/2023 5:23 PM T [facility] LABORATORY Microscopic Description The final diagnosis is based on microscopic examination of appropriate sections of all specimens. 12/14/2023 5:23 PM T [facility] Cytogenetics Summary Cytogenetic testing has been ordered and will be reported separately. 12/14/2023 5:23 PM [facility] SYNOPTIC REPORTING INVASIVE CARCINOMA OF THE BREAST: Resection INVASIVE CARCINOMA OF THE BREAST: RESECTION - A, B 8th Edition - Protocol posted: 03/17/2023 SPECIMEN ?? Procedure: ?Total mastectomy ?? Specimen Laterality: ?Left TUMOR ?? Tumor Site: ?Clock position ?? : ?2 o'clock Tumor Site: ?Distance from nipple (Centimeters): 4 cm Histologic Type: ?Invasive carcinoma of no special type (ductal) Histologic Grade (Allendale Histologic Score): ? Glandular (Acinar) / Tubular Differentiation: ?Score 3 ?? Nuclear Pleomorphism: ?Score 2 ?? Mitotic Rate: ?Score 3 ?? Overall Grade: ?Grade 3 (scores of 8 or 9) Tumor Size: ?Greatest dimension of largest invasive focus (Millimeters): 21 mm Tumor Focality: ?Single focus of invasive carcinoma Ductal Carcinoma In Situ (DCIS): ?Present ?? : ?Negative for extensive intraductal component (EIC) ?? Architectural Patterns: ?Solid ?? Nuclear Grade: ?Grade III (high) ?? Necrosis: ?Not identified Lobular Carcinoma In Situ (LCIS): ?Present Lymphatic and / or Vascular Invasion: ?Not identified Dermal Lymphatic and / or Vascular Invasion: ?Not identified Microcalcificatio ns: ?Present in DCIS Microcalcificatio ns: ?Present in invasive carcinoma Microcalcificatio ns: ?Present in non-neoplastic tissue Microcalcificatio ns: ?Present in LCIS Treatment Effect in the Breast: ?No known presurgical therapy MARGINS Margin Status for Invasive Carcinoma: ?All margins negative for invasive carcinoma ?? Distance from Invasive Carcinoma to Closest Margin: ?Greater than: 10 mm ?? Closest Margin(s) to Invasive Carcinoma: ?All margins Margin Status for DCIS: ?All margins negative for DCIS ?? Distance from DCIS to Closest Margin: ?Greater than: 10 mm ?? Closest Margin(s) to DCIS: ?All margins REGIONAL LYMPH NODES Regional Lymph Node Status: ? : ?All regional lymph nodes negative for tumor ?? Total Number of Lymph Nodes Examined (sentinel and non-sentinel): ?1 ?? Number of Dunn Nodes Examined: ?1 pTNM CLASSIFICATION (AJCC 8th Edition) ?? Reporting of pT, pN, and (when applicable) pM categories is based on information available to the pathologist at the time the report is issued. As per the AJCC (Chapter 1, 8th Ed.) it is the managing physician? s responsibility to establish the final pathologic stage based upon all pertinent information, including but potentially not limited to this pathology report. pT Category: ?pT2 pN Category: ?pN0 N Suffix: ?(sn) ADDITIONAL FINDINGS Additional Findings: ?Atypical lobular hyperplasia (ALH) Comment(s): ?Block(s) for potential future ancillary testing: A3 Breast Biomarker Reporting Template BREAST BIOMARKER REPORTING TEMPLATE - A Protocol posted: 03/17/2023 ?? Test(s) Performed: ? HER2 by in situ Hybridization: ?Negative (not amplified) ? Number of Observers: ?2 ? Number of Invasive Tumor Cells Counted: ?25 cells ? Method: ?Dual probe assay ? Average Number of HER2 Signals per Cell: ?1.56 ? Average Number of CEP17 Signals per Cell: ?1.52 ? HER2 / CEP17 Ratio: ?1.02 ? Aneusomy: ?Not identified ? Heterogeneous Signals: ?Not identified ? Test Type: ?Food and Drug Administration (FDA) cleared (test / vendor): [employer] HER2/Nati ?? Cold Ischemia and Fixation Times: ?Meet requirements specified in latest version of the ASCO / CAP Guidelines ?? Testing Performed on Block Number(s): ?A3 METHODS ?? Fixative: ?Formalin ?? Comment(s): ?The FDA approved [employer] DNA Probe Kit was developed and its performance characteristics determined by [employer]. This test incorporates minor modifications to protocol and validated by the [facility] to yield equivocal or superior performance. This FISH test uses a multiplex probe stain procedure. 12/14/2023 5:23 PM CDT [facility] LABORATORY-C ENTRAL LABORATORY Additional Information Patients with breast cancers that are HER2 IHC 3+ or IHC 2+/LEILANI amplified may be eligible for several therapies that disrupt HER2 signaling pathways. Invasive breast cancers that test 'HER2-negative' (IHC 0, 1+ or 2+/LEILANI not-amplified) are more specifically considered 'HER2-negative for protein overexpression/ge ne amplification' since non-overexpressed levels of the HER2 protein may be present in these cases. Patients with breast cancers that are HER2 IHC 1+ or IHC 2+/LEILANI not amplified may be eligible for a treatment that targets non-amplified/non -overexpressed levels of HER2 expression for cytotoxic drug delivery (IHC 0 results do not result in eligibility currently). Interpreted at [facility], Central Laboratory - [address], [place] [address] 12/14/2023 5:23 PM CDT [facility] LABORATORY-C ENTRAL LABORATORY Other (Left Breast Mastectomy) 11/25/2023 10:05 AM CDT 11/26/2023 8:13 AM CDT Specimen (specimen) (Left Breast Dunn Node) 11/25/2023 10:44 AM CDT 11/26/2023 8:13 AM CDT Specimen (specimen) (Right Breast Mastectomy) 11/25/2023 11:25 AM CDT 11/26/2023 8:13 AM CDT Lupe Winn MD PATHOLOGY/CYTOLO GY Performing Organization Address City/State/[facility] Co de Phone Number [facility]-CENTRAL LABORATORY [address] [place] [address], * PATH BREAST CORE BIOPSY (10/21/2023 9:21 AM CDT) Case Report Pathology Report ?Case: [id number] ? Authorizing Provider: ??Jose Ching MD ??Collected: ? 10/21/2023 0921 ? Ordering Location: ? [facility] C[facility] LAB ?Received: ?10/22/2023 1004 ? Pathologist: ? Ambar Astudillo MD ? Specimen: ?Left Breast Core Ultrasound Biopsy ? 10/26/2023 3:42 PM CDT [facility] ENTRAL LABORATORY Amendment 10/26/2023 - Amendment issued to incorporate ancillary studies. 10/26/2023 3:42 PM CDT [facility] ENTRAL LABORATORY Final Diagnosis A) LEFT BREAST, 2:00, 4 CM FROM NIPPLE, ULTRASOUND-GUIDE D CORE BIOPSY: 1. Invasive ductal carcinoma ?? a. Era grade: II of III; Allendale score: 6 of 9 ?? b. Angio-lymphatic invasion: Absent ?? c. Associated DCIS: Indeterminate 2. Breast Ancillary Testing: ?a. Hormone Receptors: ?Estrogen receptor: Positive (96%, strong staining) ?Progesterone receptor: Positive (87%, moderate staining) ?b. HER2 by IHC: Negative (1+ by manual morphometry) ?c. Ki-67: 21% 10/26/2023 3:42 PM CDT [facility] ENTRAL LABORATORY Amendment electronically signed by Ambar Astudillo MD on 10/26/2023 at 3:42 PM Comment A) This is an image-guided breast biopsy. The pathologic findings should be correlated with radiologic and clinical findings prior to treatment decisions. Case seen in consultation with Dr. Bangura. 10/26/2023 3:42 PM CDT [facility] LABOR[facility] Clinical Information A) Left breast irregular, spiculated, solid and hypoechoic mass measuring 1.8 x 2.4 x 1.8 cm at 2:00, 4 cm from nipple. 10/26/2023 3:42 PM CDT [facility] Gross Description A) Label: Patient's name and left breast 2:00 4 cm FN Description: 5 Fibrofatty core biopsies Size: 1.2-1.7 cm in length by 0.2 cm in diameter Ink color: Blue The specimen is submitted in toto in one cassette. Cold ischemic time: Less than 60 minutes, meets current ASCO/CAP guidelines. ?? The specimen was fixed in formalin for a minimum of 6 hours and not longer than 72 hours. [place] 10/22/2023 ? 10/26/2023 3:[address] [facility] Microscopic Description The final diagnosis is based on microscopic examination of appropriate sections of all specimens. A) The presence of blue ink is confirmed on tissue sections. 10/26/2023 3:[address] [facility] SYNOPTIC REPORTING Breast Biomarker Reporting Template BREAST BIOMARKER REPORTING TEMPLATE - A Protocol posted: 03/17/2023 ?? Test(s) Performed: ? Estrogen Receptor (ER) Status: ?Positive (greater than 10% of cells demonstrate nuclear positivity) ? Percentage of Cells with Nuclear Positivity: ?96 % ? Average Intensity of Staining: ?Strong ? Test Type: ?Laboratory-dev eloped test ? Primary Antibody: ?SP1 ?? Test(s) Performed: ? Progesterone Receptor (PgR) Status: ?Positive ? Percentage of Cells with Nuclear Positivity: ?87 % ? Average Intensity of Staining: ?Moderate ? Test Type: ?Laboratory-dev eloped test ? Primary Antibody: ?16 ?? Test(s) Performed: ? HER2 by Immunohistochemi stry: ?Negative (Score 1+) ? Test Type: ?Laboratory-dev eloped test ? Primary Antibody: ?4B5 ?? Test(s) Performed: ?Ki-67 ? Ki-67 Percentage of Positive Nuclei: ?21 % ? Primary Antibody: ?MIB1 ?? Cold Ischemia and Fixation Times: ?Meet requirements specified in latest version of the ASCO / CAP Guidelines ?? Testing Performed on Block Number(s): ?A1 METHODS ?? Fixative: ?Formalin ?? Image Analysis: ?Performed ? Method: ?[employer] morphometric analysis ? Biomarkers Scored by Image Analysis: ?ER ? Biomarkers Scored by Image Analysis: ?PgR ? Biomarkers Scored by Image Analysis: ?Ki-67 ?? Comment(s): ?2,476 nuclei analyzed for Ki-67. 10/26/2023 3:42 PM CDT [facility]AT[facility] Additional Information Patients with breast cancers that are HER2 IHC 3+ or IHC 2+/LEILANI amplified may be eligible for several therapies that disrupt HER2 signaling pathways. Invasive breast cancers that test 'HER2-negative' (IHC 0, 1+ or 2+/LEILANI not-amplified) are more specifically considered 'HER2-negative for protein overexpression/g loki amplification' since non-overexpresse d levels of the HER2 protein may be present in these cases. Patients with breast cancers that are HER2 IHC 1+ or IHC 2+/LEILANI not amplified may be eligible for a treatment that targets non-amplified/no n-overexpressed levels of HER2 expression for cytotoxic drug delivery (IHC 0 results do not result in eligibility currently). Interpreted at [facility], Central Laboratory - [address] [facility] [address], [place] [address] Immunohistochemi stry controls were reviewed and approved by the pathologist during this examination. 10/26/2023 3:42 PM CDT [facility] Mayomi [facility] Other (Left Breast Core Ultrasound Biopsy) 10/21/2023 9:21 AM CDT 10/22/2023 10:04 AM CDT Jose Ching MD PATHOLOG[facility] [address] [place] [address], * COLONOSCOPY (09/26/2018 12:28 PM CDT) 09/26/2018 12:2 8 PM CDT Narrative Transcriptions Khang Damian MD - 09/26/2018 1:11 PM CDT Patient Name: Fiordaliza Tsang Procedure Date: 09/26/2018 Gender: Female Date of : 1965 Admit Type: Ambulatory Procedure: Colonoscopy Proceduralist: Khang Damian [facility], Cricket Beckford MD (Blending Technician) Referring MD: Tierney Serrano Indications/Pre-Op Diagnosis: Surveillance: [...] the bowel preparation was evaluatedusing the BBPS ([place] Bowel Preparation Scale) with scores of: Right [...] history of colonic polyps CPT copyright 2017 [employer]. All rights reserved. The codes documented in this report are preliminary and upon death surveys coder reviewmay be revised to meet current [...] 11:15 AM 02/16/2011 3:56 PM Care Teams Toxicology Supervisor Relationship Specialty Start Date End Date Jose Ching MD [address] [place] [address] PCP - General Family Practice 11/05/23
--- NOTE | 2024-01-12 14:00 | CRLHL7_ITS ---
For Patients: As a result of the Century Cures Act, medical imaging exams and procedure reports are released immediately into your electronic medical record. You may view this report before your referring provider. If you have questions, please contact your health care provider. DXA BONE MINERAL DENSITY STUDY Current height (in): 66.0. Weight (lb): 194.0. Menopause age: 51. Ethnicity: White. Reason for exam: Prior to endocrine therapy. 1. Have you had a previous hip or vertebral fracture? No. 2. Have you had any fractures during your adult life which did not result from significant trauma (e.g., auto accident)? No. 3. Did either of your parents have a hip fracture? No. 4. Do you smoke? No. 5. Have you ever taken Glucocorticoids? No. 6. Do you have rheumatoid arthritis? No. 7. Do you have secondary osteoporosis? No. 8. Do you drink 3 or more alcoholic drinks per day? No. 9. Are you being treated for osteoporosis? No. 10. Have you ever taken any of the following medications: Actonel, Evista, Fosamax, Miacalcin, Reclast, Boniva, Forteo, HRT (i.e. estrogen/hormone therapy), Protelos, Prolia, Vitamin D, Calcium, other ??? please specify. ANSWER: Yes. Vitamin D, HRT, calcium. 11. Do you have any of the following medical conditions: Anorexia or bulimia, asthma or emphysema, end stage renal disease, hyperparathyroidism, any seizure disorders, cancer, inflammatory bowel diseases, hysterectomy, other ??? please specify. ANSWER: Yes. Cancer. 12. What was your maximum height (inches)? 68. 13. Do you perform weight bearing exercise regularly? No. 14. Do you regularly consume dairy products? Yes. 15. Do you drink caffeinated beverages? No. 16. At what age did your period start? 14. 17. Are you premenopausal? No. 18. How many full-term pregnancies have you had? 3. 19. Have you ever missed your period for more than 6 months in a row (not including or menopause)? No. TECHNIQUE: Bone mineral density study was performed using the resmio. FINDINGS: The results of the study expressed as bone mineral density (BMD) are as follows: Lumbar spine L1 to L3: BMD: 0.874 g/cm2. T-score: -1.3. Z-score: -0.1 Neck Left: BMD: 0.880 g/cm2. T-score: 0.3. Z-score: 1.5 Right: BMD: 0.873 g/cm2. T-score: 0.2. Z-score: 1.4 Total Left: BMD: 1.096 g/cm2. T-score: 1.3. Z-score: 2.1 Right: BMD: 1.090 g/cm2. T-score: 1.2. Z-score: 2.0 IMPRESSION: Osteopenia. FRAX 10-year Fracture Risk Major Osteoporotic Fracture: 5.4 percent Hip Fracture: 0.1 percent Reported Risk Factors: [place] () Neck BMD = 0.873, BMI = 31.3 Jose Mclain M.D. Diagnostic Radiologist [email or web address] Transcribed: 11:14 am DW/Dictated by: Jose Mclain MD @ 01/13/2024 9:46:00 AM (Electronically Signed)
== END 2024-01-12 13:40 | disposition home or self-care (01) ==
LOC: RAD 13:40
PROVIDERS: PCP Family Medicine; Visit Provider Internal Medicine Hematology & Oncology
DX: Z78.0 Asymptomatic menopausal state (principal); M85.89 Other specified disorders of bone density and structure, multiple sites; C50.912 Malignant neoplasm of unspecified site of left female breast; Z17.0 Estrogen receptor positive status [ER+]
CPT/HCPCS: 77080

== ENCOUNTER 2024-02-12 20:22 | Emergency (ER) | payer OTHER, SELFPAY ==
[2024-02-12 20:37] VITALS: BP 130/88; PULSE 102; RESP 18; TEMP 36.4; O2SAT 95; BMI 30.7
--- NOTE | 2024-02-12 20:53 | ED_ITS ---
HPI - General Adult General Time Seen by Provider: 20:53 Date Seen: 03/08/24 Chief complaint: Constipation Stated complaint: Constipation Time Seen by Provider: 02/12/24 20:25 Source: patient and RN notes reviewed Mode of arrival: ambulatory Limitations: no limitations History of Present Illness HPI narrative: This 58-year-old female is coming in with complaint of constipation. Wednesday was her last normal bowel movement. She had fat grafting done on her abdomen in preparation for reconstructive breast surgery from breast cancer. The fact grafting was done on Wednesday. She has been on hydrocodone. Her abdominal wall is still numb. She has had no fevers. She is getting episodes of severe cramping, right now she is feeling better. She has been on senna with her [place], took this with her mastectomy without issue. She tried 2 enemas at home, could see stool on the tip of the enema. She felt like she had to go to the bathroom just before he came in to see her in still had no results. She feels like she has to go but then nothing will come. She is feeling sore in the rectal area, does hurt to sit. Related Data Home Medications ?Medication ?Instructions ?Recorded ?Confirmed acyclovir 400 mg tablet 400 mg PO DAILY PRN 10/28/23 02/01/24 calcium carbonate 1,000 mg PO DAILY 11/09/23 02/01/24 cholecalciferol (vitamin D3) 25 25 mcg PO DAILY 11/09/23 02/01/24 mcg (1,000 unit) tablet multivitamin 1 tab PO DAILY 11/09/23 02/01/24 omega 2-hhi-fzj-fish oil 1,200 mg 1 cap PO DAILY 11/09/23 02/01/24 (144 mg-216 mg) capsule (Fish Oil) hydrocodone 5 mg-acetaminophen 325 1 - 2 tab PO Q4-6H PRN pain 01/26/24 02/01/24 mg tablet hydrocortisone valerate 0.2 % applic topical BID 02/01/24 02/01/24 topical cream Previous Rx's ?Medication ?Instructions ?Recorded anastrozole 1 mg tablet 1 mg PO QDAY #90 tabs 12/16/23 fluconazole 200 mg tablet 200 mg PO QDAY #10 tabs 02/01/24 prednisone 20 mg tablet 10 - 40 mg (0.5 - 2 x 20 mg) PO 02/01/24 QDAY #18 tabs Allergies Allergy/AdvReac Type Severity Reaction Status Date / Time No Known Drug Allergies Allergy Verified 02/01/24 10:08 Review of Systems Narrative: As per HPI. [facility] Medical History Cancer of left breast, stage 1, estrogen receptor positive ?C50.912 - Malignant neoplasm of unspecified site of left female breast (ICD- 10) ?Z17.0 - Estrogen receptor positive status [ER+] (ICD-10) TMJ dysfunction ?M26.609 - Unspecified temporomandibular joint disorder, unspecified side (ICD-10) GERD (gastroesophageal reflux disease) ?K21.9 - Gastro-esophageal reflux disease without esophagitis (ICD-10) Herpes simplex labialis ?B00.1 - Herpesviral vesicular dermatitis (ICD-10) Invasive ductal carcinoma of left breast in female ?C50.912 - Malignant neoplasm of unspecified site of left female breast (ICD- 10) Sensorineural hearing loss (SNHL) of both ears ?H90.3 - Sensorineural hearing loss, bilateral (ICD-10) Insomnia ?G47.00 - Insomnia, unspecified (ICD-10) History of colon polyps (2013) ?Z86.010 - Personal history of colonic polyps (ICD-10) Surgical History History of mastectomy ?Z90.10 - Acquired absence of unspecified breast and nipple (ICD-10) History of wisdom tooth extraction ?K08.409 - Partial loss of teeth, unspecified cause, unspecified class (ICD- 10) History of hysterectomy (02/16/11) ?Z90.710 - Acquired absence of both cervix and uterus (ICD-10) Brain abscess (2008) ?G06.0 - Intracranial abscess and granuloma (ICD-10) Family History Aunt Esophageal cancer Breast cancer Father Colon cancer, Onset Age: 60 High blood pressure Mother Atrial fibrillation Coronary artery disease Sister Stomach cancer, Onset Age: 50 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, 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 What is your current living situation?: I presently have a place to live Problems where you live: no known problems Problems where you live details: na In the past 12 months, utilities in danger of being shut off: no In past 12 months, lack of transportation kept you from medical appts, meetings, work, or getting things needed for daily living: no In the past 12 mos, have been you worried that your food would run out before you had money to buy more?: never true In the past 12 mos, the food you bought just didn't last and you didn't have money to buy more?: never true Smoking Status: Never smoker How often do you have a drink containing alcohol: monthly or less How many standard drinks containing alcohol do you have on a typical day: 1 or 2 AUDIT-C Alcohol total score: 1 Non-prescribed substance use: denies use Caffeine: No How often does anyone, including family, friends and others, physically hurt you : never How often does anyone, including family, friends and others, insult or talk down to you: never How often does anyone, including family, friends and others, threaten you with harm: never How often does anyone, including family, friends and others, scream or curse at you: never Little interest or pleasure in doing things: not at all Feeling down, depressed, or hopeless: several days Exam Const: Vital Signs, click to edit/add: Vital Signs - 24 hr 02/12/24 20:37 Temperature 97.6 F Pulse Rate [Left P ulse Oximeter] 102 H Respiratory Rate 18 Blood Pressure [Ri ght Upper Arm] 130/88 Pulse Oximetry 95 Oxygen Delivery Me thod Room Air This 58-year-old female is seen coming back from the bathroom, she is ambulating slowly. She otherwise is alert, interactive, no apparent distress. Speech is normal. Inspection of her abdominal wall shows clean and dry intact surgical sites with single stitches in them. Her lower abdominal wall has bruising. She is not distended, bowel sounds are normal. Anus appears normal, no hemorrhoids. Digital rectal exam done and rectal vault is empty but just at the top of my finger I can feel stool within the colon. This is higher than I can manually disimpact but there certainly a ball of stool in there. Documenting provider has reviewed patient's vital signs: yes Course Course ED Course: We will try an Enemeez, patient has been instructed to try to hold it in. Hopefully she will have some results with that. Reevaluation(s) Time of Reevaluation #1: 22:14 Reevaluation #1: Patient has had no results with the Enemeez. She did try sitting on the toilet for quite some time. I did attempt rectal exam again, stool is just above my finger in I am not easily able to extract any. We will try a Fleet's enema. If that is unsuccessful, will see if we can get her GoLYTELY which she will have to initiate at home. Time of Reevaluation #2: 23:18 Reevaluation #2: Patient is had minimal results. Will get GoLYTELY for her and discharge to home to start the GoLYTELY prep. Time of Reevaluation #3: 23:29 Reevaluation #3: Patient did have some result just prior to leaving. Will plan on sending her with the GoLYTELY in case she needs to do further clean out. Vital Signs Vital signs: Initial Vital Signs Temperature 97.6 F 02/12/24 20:37 Temperature Source Temporal Artery Scan 02/12/24 20:37 Pulse Rate 102 H 02/12/24 20:37 Pulse Rhythm Regular 02/12/24 20:37 Respiratory Rate 18 02/12/24 20:37 Blood Pressure 130/88 02/12/24 20:37 Blood Pressure Mean 102 02/12/24 20:37 Blood Pressure Position Standing 02/12/24 20:37 Pulse Oximetry 95 02/12/24 20:37 Oxygen Delivery Method Room Air 02/12/24 20:37 Vital Signs Temperature 97.6 F 02/12/24 20:37 Pulse Rate 102 H 02/12/24 20:37 Respiratory Rate 18 02/12/24 20:37 Blood Pressure 130/88 02/12/24 20:37 Pulse Oximetry 95 02/12/24 20:37 Oxygen Delivery Method Room Air 02/12/24 20:37 Temperature 97.6 F 02/12/24 20:37 Pulse Rate 102 H 02/12/24 20:37 Respiratory Rate 18 02/12/24 20:37 Blood Pressure 130/88 02/12/24 20:37 Pulse Oximetry 95 02/12/24 20:37 Oxygen Delivery Method Room Air 02/12/24 20:37 Medications Administered Medications: Discontinued Medications Generic Name Dose Route Start Last Admin Trade Name Dee PRN Reason Stop Dose Admin Docusate Sodium/Benzocaine 5 ml 02/12/24 21:01 02/12/24 21:10 Docusate Sodium/Benzocaine 5 Ml Enema CA 02/12/24 21:02 5 ml ONCE ONE Administration Discharge Plan Discharge Clinical Impression: Constipation Instructions: Constipation (ED), High Fiber Diet (ED) Additional Instructions: Start GoLYTELY, follow handout for mixing instructions and directions for use. You do not need to complete all of this if you start clearing your bowels and get to liquidy stool. If you are going to be taking further hydrocodone, senna can be increased to 2 tablets twice a day, would also recommend adding in Mi raLax 17 g daily. If you do not get results with the GoLYTELY, start vomiting and are unable to take this, please return for re-evaluation. Prescriptions: No Action hydrocodone-acetaminophen 5-325 mg tablet 1 - 2 tab PO Q4-6H PRN (Reason: pain) acyclovir 400 mg tablet 400 mg PO DAILY PRN omega 8-wqe-pzf-fish oil [Fish Oil] 1,200 (144-216) mg capsule 1 cap PO DAILY multivitamin Tablet 1 tab PO DAILY calcium carbonate 500 mg calcium (1,250 mg) tablet 1,000 mg PO DAILY cholecalciferol (vitamin D3) 25 mcg (1,000 unit) tablet 25 mcg PO DAILY anastrozole 1 mg tablet 1 mg PO QDAY Qty: 90 3RF hydrocortisone valerate 0.2 % cream topical BID fluconazole 200 mg tablet 200 mg PO QDAY Qty: 10 0RF prednisone 20 mg tablet 10 - 40 mg PO QDAY Qty: 18 0RF Rx Instructions: 2 QD x 5 days, 1 QD x 5 days, 1/2 QD x 6 days then stop Follow Up/Referrals: Jose Ching MD [Primary Care Provider] - Stand Alone Forms: [employer] Info Instructions
[2024-02-12] MEDS: DOCUSATE SODIUM/BENZOCAINE 5 ML ENEMA PR (21:10)
--- OUTSIDE RECORDS SUMMARY | 2024-02-12 21:54 | XMS_ITS | Clinical Summary ---
Author Organization [facility] [employer] [facility] Address [place], [place] [address] Care Team Providers Care Publicity Person Name Role Phone Jose Ching MD Primary [...] Encounters Date Type Department Care Team Description 01/14/2024 Telephone [facility] [address] [place] [address] Betina Ingram, MS, [facility] Results (Cancer genetic counseling) 01/03/2024 12:20 PM CDT Orders Only [address] [place] [address] Lab, [facility] 01/02/2024 Travel 11/25/2023 Lab Requisition [facility] [phone] Lupe Winn MD 11/25/2023 Lab Requisition [facility] [phone] Lupe Winn MD 11/25/2023 Lab Requisition [facility] [phone] Lupe Winn MD from Last 3 Months Immunizations Name [...] Comments Blood Pressure 128/67 02/17/2022 2:03 PM LABELING SPECIALIST Pulse 61 02/17/2022 2:03 PM LABELING SPECIALIST Temperature 36.8 ??C (98.2 ??F) 02/17/2022 2:03 PM CS T Respiratory Rate 17 02/17/2022 2:03 PM LABELING SPECIALIST Oxygen Saturation 96% 02/17/2022 2:03 PM LABELING SPECIALIST Inhaled Oxygen Concentration - - Weight 93.4 kg (206 lb) 02/17/2022 2:03 PM LABELING SPECIALIST Height 168.5 cm (5' 6.34) 09/26/2018 10:30 [...] MALIGNANT TISSUE Routine 11/25/2023 10:05 AM CDT COLONOSCOPY 09/26/2018 12:28 PM CDT from Last 3 Months or Most Recently Relevant to Health Maintenance Results * LAB TRACKING EVENT (11/25/2023 11:25 AM CDT) Other (Other) Client Collect / Unknown 11/25/2023 11:25 AM CDT 11/25/2023 9:52 PM CDT Lupe Winn MD LAB BILL ONLY [facility] [address] [place] [address], * MSO AP SEND-OUT (11/25/2023 10:05 AM CDT) Other (Left Breast Mastectomy) 11/25/2023 10:05 AM CDT 12/07/2023 2:50 PM CDT Lupe Winn MD LABORATORY Performing Organization Address [place]/[facility] Co de Phone Number [facility] [employer] [address] [address], [place] * CG HER2 BREAST (11/25/2023 10:05 AM CDT) Other (Left Breast Mastectomy) 11/25/2023 10:05 AM CDT 11/29/2023 5:42 PM CDT Lupe Winn MD LABORATORY Performing Organization Address [facility] Co de Phone Number [facility] [employer] [address] [place] [address], [place] * CYTOGENETICS MALIGNANT TISSUE STUDIES (11/25/2023 10:05 AM CDT) RFR Breast cancer 12/02/2023 3:35 PM CDT [facility] TEST & RESULT SUMMARY HER2 FISH Breast: See pathology report [id number]. See comments. 12/02/2023 3:35 PM CDT [facility] _ 12/02/2023 3:35 PM CDT [facility] N[facility]ATORY COMMENTS This record is used as an internal laboratory test designed for workflow purposes only. 12/02/2023 3:35 PM CDT [facility] SOURCE Left Breast Mastectomy (Paraffin Slides A3 2 uns) [id number] 12/02/2023 3:35 PM CDT [facility] Other (Left Breast Mastectomy) 11/25/2023 10:05 AM CDT 11/29/2023 5:42 PM CDT Lupe Winn MD LABORATORY Performing Organization Address [facility] Co de Phone Number [facility] [address] [place] [address], [place] * PATH TISSUE EXAM (11/25/2023 10:05 AM CDT) Case Report Pathology Report ?Case: [id number] ? Authorizing Provider: ??Lupe Winn MD ??Collected: ? 11/25/2023 1005 ? Ordering Location: ? L CENTRAL LAB ?Received: ?11/26/2023 0813 ? Pathologist: ? Alda Connelly MD ? Specimens: ?? A) - Left Breast Mastectomy, weight 477g ? B) - Left Breast Kilbourne Node ? C) - Right Breast Mastectomy, weight 408 ? 12/14/2023 5:23 PM CDT [facility] [employer] [facility] LABORATORY-C ENTRAL LABORATORY Amendment 12/02/2023 - Amendment issued to incorporate ancillary HER2 FISH studies. 12/14/2023 - Per Dr Boateng, tissue was submitted to [facility] for Oncotype DX Breast Cancer testing, please see attached scanned report for results. 12/14/2023 5:23 PM CDT [facility] EN[facility]AT[facility] Final Diagnosis A) LEFT BREAST, MASTECTOMY: 1. Invasive ductal carcinoma, Era grade III of III (see comment) ?a. Size: 21 mm ?b. Core biopsy site is associated with tumor 2. Ductal carcinoma in situ (DCIS), nuclear grades 2 and 3, solid type 3. Margins: ?a. Invasive carcinoma and DCIS are both greater than 10 mm from all margins 4. Breast Ancillary Testing: Performed on prior case ([id number]) ?a. Hormone Receptors: ?Estrogen receptor: Positive (96%, [...] atypia and malignancy 12/14/2023 5:23 PM CDT [facility] Amendment electronically signed by Alda Connelly MD on 12/14/2023 at 5:23 PM Amendment electronically signed by Dago Murphy MD on 12/02/2023 at 5:19 PM Comment A) The tumor is of a higher histologic grade than what was seen on the prior core biopsy ([id number]) due to a greater number of mitoses. As such, HER2 testing will be repeated on the current case. 12/14/2023 5:23 PM CDT [facility] Clinical Information Left breast invasive ductal carcinoma, [place] grade II ([id number]). 12/14/2023 5:23 PM CDT [facility] Gross Description A) Received fresh for [...] tissue. ??No definitive additional lesions are identified. Waistband Setter sections are submitted as follows: ?? 1. [...] margin, perpendicular Specimen images have been uploaded. (Rusk ink on superior aspect of tissue slices [...] identified. No lymph nodes are identified grossly. Waistband Setter sections are submitted as follows: 1. ?? [...] hours. TRS 11/26/2023 12/14/2023 5:23 PM CDT [facility] ENTRAL LABORATORY Intraoperative Consultation A) LEFT [...] surgical procedure. ??This testing was performed at: [facility] [address] [place] [address] 12/14/2023 5:23 PM [facility] Microscopic Description The final diagnosis is based on microscopic examination of appropriate sections of all specimens. 12/14/2023 5:23 PM [facility] Cytogenetics Summary Cytogenetic testing has been ordered and will be reported separately. 12/14/2023 5:23 PM [facility] [employer] REPORTING INVASIVE CARCINOMA OF THE BREAST: Resection INVASIVE CARCINOMA OF THE BREAST: RESECTION - A, B 8th Edition - Protocol posted: 03/17/2023 SPECIMEN ?? Procedure: ?Total mastectomy ?? Specimen Laterality: ?Left TUMOR ?? Tumor Site: ?Clock position ?? : ?2 o'clock Tumor Site: ?Distance from nipple (Centimeters): 4 cm Histologic Type: ?Invasive carcinoma of no special type (ductal) Histologic Grade (Era Histologic Score): ? Glandular (Acinar) / Tubular [...] (sentinel and non-sentinel): ?1 ?? Number of Kilbourne Nodes Examined: ?1 pTNM CLASSIFICATION (AJCC 8th [...] developed and its performance characteristics determined by [employer]. This test incorporates minor modifications to protocol and validated by the [facility] to yield equivocal or superior performance. This FISH test uses a multiplex probe stain procedure. 12/14/2023 5:23 PM CDT [facility] Additional Information Patients with [...] not result in eligibility currently). Interpreted at [facility] - [address] [address] 12/14/2023 5:23 PM CDT [facility] Other (Left Breast Mastectomy) 11/25/2023 10:05 AM CDT 11/26/2023 8:13 AM CDT Specimen (specimen) (Left Breast Kilbourne Node) 11/25/2023 10:44 AM CDT 11/26/2023 8:13 AM CDT Specimen (specimen) (Right Breast Mastectomy) 11/25/2023 11:25 AM CDT 11/26/2023 8:13 AM CDT Lupe Winn MD PATHOLOGY/CYTOLO GY [facility] LAB[facility]ORY [address] [place] [address], * COLONOSCOPY (09/26/2018 12:28 PM CDT) 09/26/2018 12:2 8 PM CDT Narrative Transcriptions Khang Damian MD - 09/26/2018 1:11 PM CDT Patient Name: Fiordaliza Tsang Procedure Date: 09/26/2018 Gender: Female Date of : 1965 Admit Type: Ambulatory Procedure: Colonoscopy Proceduralist: Khang Damian [facility], Cricket Beckford MD (Slab Lifting Supervisor) Referring MD: Tierney Serrano Indications/Pre-Op Diagnosis: Surveillance: [...] the bowel preparation was evaluatedusing the BBPS ([place] Bowel Preparation Scale) with scores of: Right [...] history of colonic polyps CPT copyright 2017 [employer]. All rights reserved. The codes documented in this report are preliminary and upon sql server bi developer reviewmay be revised to meet current compliance [...] 11:15 AM 02/16/2011 3:56 PM Care Teams Publicity Person Relationship Specialty Start Date End Date Jose Ching MD [address] [place] [id number] PCP - General Family Practice 11/05/23
--- OUTSIDE RECORDS SUMMARY | 2024-02-12 21:54 | XMS_ITS | Data Portability ---
Author Organization [place] [facility] Address [address] [address] Care Team Providers Care Supervisor Brine Name Role Phone GABRIELLE SHIKHA Referring Provider DOLLY KAPLAN Referring Provider BRENDAN [...] goal of 2 point symptom reduction during ADLs.detention goals (to be met in 6 weeks):*Patient [...] By Organization Details Last Modified Time 08/05/2022 [id number] Total treatment time minutes today = 45 Next Visit Plan: how is clicking? Less headaches? May need to work on masseter tension NV. Goals: resolve clicking and headaches. Progress Note Date: 09/16 [email or web address] Not available 08/05/2022 10:55:51 08/21/2022 [id number] Total treatment time minutes today = 35 Next Visit Plan: Reassess and if still doing well, might be ready for DC. Goals: resolve clicking and headaches. Progress Note Date: 09/16 [email or web address] Not available 08/21/2022 09:51:13 08/26/2022 [id number] Total treatment time minutes today = 30 Next Visit Plan: Reassess and if still doing well, might be ready for DC. Followup in 2 weeks prn. How was Dry needling? Goals: resolve clicking and headaches. Progress Note Date: 09/16 [email or web address] Not available 08/26/2022 09:49:11 09/08/2022 [id number] Total treatment time minutes today =46 Next Visit Plan: Did R side masseter calm down? L still good? 1 more visit planned. Goals: resolve clicking and headaches. Progress Note Date: 09/16 [email or web address] Not available 09/08/2022 17:58:44 Reason for Referral None Reported. Results Created Date Observation Date Name Description Value Unit Range Abnormal Flag Note LastModifiedBy Organization Detail LastModifiedTime 07/31/19 23 07/31/2022 XR, ortho panto gram No observ ation record ed. [address], [place], [address], 07/31/2022 17:53:43 08/28/19 23 oral appli ance prepa ratio n* No observ ation record ed. [email or web address] [address], [place], [address], 08/27/2022 11:08:35 08/28/19 23 oral appli ance prepa ratio n* No observ ation record ed. [email or web address] [facility] [address], [place], [address], 08/27/2022 13:04:22 08/28/19 23 XR, ortho panto gram No observ ation record ed. [email or web address] Not Available 11:26:41 Result Notes None recorded. Problems Name Problem SNOMED Code Status Onset Date Resolution Date Notes Provider Name and Address Organization Details Recorded Time Temporal headache 03590889 Active 2022 headache attribute d to TMD JOSAFAT JOHNSON DDS [address], [place], [address], [facility] 3 14:09:43 Myofascia l pain 549560946 Active 2022 masticato ry JOSAFAT JOHNSON DDS [address], [place], [address], [facility] 3 14:09:56 Pain of left temporoma ndibular joint 721464738774 Active 2022 JOSAFAT JOHNSON DDS [address], [place], [address], [facility] 3 14:09:29 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 Procedures Surgical History Date Name Laterality Status Provider Name and Address Organization Details Recorded Time 09/29/19 79793 - PT ReEval cancelled Priti Tonatachahector, DPT [address], [place], [address], [facility] 09/28/2022 08:20:26 09/29/19 96972: Self Care/Home Management Training cancelled Priti Tooriana, DPT [address], [place], [address], [facility] 09/28/2022 08:19:56 09/29/19 08753: Therapeutic Exercise cancelled Priti Tooriana, DPT [address], [place], [address], [facility] 09/28/2022 08:19:56 09/29/19 92016: Neuromuscular Re-Education cancelled Priti Tooriana, DPT [address], [place], [address], [facility] 09/28/2022 08:19:56 09/29/19 11677: Manual Therapy cancelled Priti Tooriana, DPT [address], [place], [address], [facility] 09/28/2022 08:19:56 09/29/19 39301: Therapeutic Activities cancelled Priti Tooriana, DPT [address], [place], [address], [facility] 09/28/2022 08:19:56 09/09/19 53666: Therapeutic Exercise completed Pritibertha Del Real, DPT [address], [place], [address], [facility] 09/08/2022 17:58:34 09/09/19 91960: Manual Therapy completed NINO PierreT [address], [place], [address], [facility] 09/08/2022 17:58:40 08/27/19 15419: Needle insertion(s) without injection(s), 1 or 2 muscle(s) completed Priti Del Real DPT [address], [place], [address], [facility] 08/26/2022 09:49:30 08/27/19 00736: Therapeutic Exercise completed NINO PierreT [address], [place], [address], [facility] 08/26/2022 09:50:05 08/27/19 97716: Manual Therapy completed Priti Del Real DPT [address], [place], [address], [facility] 08/26/2022 09:49:44 08/22/19 29208: Therapeutic Exercise completed Priti Del Real DPT [address], [place], [address], [facility] 08/21/2022 09:51:08 08/22/19 84068: Manual Therapy completed Priti Del Real DPT [address], [place], [address], [facility] 08/21/2022 09:50:58 08/06/19 09906 - PT Eval Moderate Complexity completed Priti Del Real DPT [address], [place], [address], [facility] 08/05/2022 10:53:13 08/06/19 50455: Self Care/Home Management Training completed NINO PierreT [address], [place], [address], [facility] 08/05/2022 10:53:23 08/06/19 23 92089: Therapeutic Exercise completed Priti Del Real DPT [address] [facility] [address], [place], [address], [facility] 08/05/2022 10:53:19 08/06/19 23 66057: Manual Therapy completed Priti Del Real DPT [address] [facility] [address], [place], [address], [facility] 08/05/2022 10:53:16 07/31/19 23 Orthopantogram completed JOSAFAT JOHNSON DDS [address] [facility] [address], [place], [address], [facility] 07/30/2022 14:04:48 07/21/19 08 procedure on brain completed Eileen Retana [facility] 07/30/2022 10:53:12 Imaging Results Imaging Date Name Status LastModified by Organization Details LastModified Time 07/31/2022 XR, orthopantogram completed [address] [place], [address], 07/31/2022 17:53:43 08/27/2022 oral appliance preparation* completed [email or web address] [address] [place], [address], 08/27/2022 11:08:35 08/27/2022 oral appliance preparation* completed [address] [place], [address], 08/27/2022 13:04:22 08/27/2022 XR, orthopantogram completed [email or web address] Info rmation not available 08/27/2022 11:26:41 Procedure [...] Updated DateTime 3 167.64 cm 30.7 kg/m2 05678.5 5 g 58 /min 122 mm[Hg] 80 mm[Hg] Eileen Retana [facility] 3 10:34:12 Social History Question Answer Notes LastModified by Organizat ion Details LastModified Time Tobacco Smoking Status Never Smoker Eileen Retana [facility] 07/30/2022 10:52:25 What Is Your Level Of Alcohol Consumption? Occasional [email or web address] Information not available 07/30/2022 What Is Your Level Of Caffeine Consumption? Occasional [email or web address] Information not available 07/30/2022 What Type Of Diet Are You Following? REGULAR [email or web address] Information not available 07/30/2022 What Is The Highest Grade Or Level Of School You Have Completed Or The Highest Degree You Have Received? MS09580-7 [email or web address] Information not available 07/30/2022 What Is Your Relationship Status? [email or web address] Information not available 07/30/2022 Sex: Unknown Functional Status Question Answer Note LastModified by Organizat ion Details LastModified Time What is your exercise level? Occasional [email or web address] Information not available 07/30/2022 Mental Status None recorded. Family History Relationship Description Onset Age of this Age Resolved Age Notes LastModified by Organization Details LastModified Time Mother Heart disease [email or web address] Not available 10:51:38 Medical History Condition Response Neck Injury Y Back pain Y Back Injury Y Head Trauma/Injury Y Headaches Y Gynecological HistoryNo gynecological history recorded. Obstetrics History GPAL:G 0 P 0 0 0 0 Immunizations Vaccine Type Date Status Provider Name and Address Organization Details Recorded Time influenza nasal, unspecified formulation 01/29/2022 completed [place] [facility] 07/30/2022 10:50:44 SARS-COV-2 (COVID-19) vaccine, UNSPECIFIED 02/25/2022 completed [place] [facility] 07/30/2022 10:51:15 Past Encounters Encounter ID Performer Location Encounter Start Date Encounter Closed Date Diagnosis/Indication Diagnosis SNOMED-CT Code Diagnosis ICD10 Code [id number] PATHHALIMA ELIZABETH, DDS [address] [address] 07/30/2022 10:12:16 07/30/2022 11:21:14 Pain of left temporomandibular joint 4648421080 0381595 M26.622 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 3738780156 2569686 M26.631 Myofascial pain 20879719 9 M79.11 Temporal headache 186648 06 R51.9 [id number] NATHEN Pierre [address] [place] [address] 08/05/2022 09:53:40 08/05/2022 10:46:33 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 7353623273 5741366 M26.631 Myofascial pain 08975562 9 M79.11 Pain of le ft temporomandibular joint 8132126837 4700643 M26.622 Temporal headache 783652 06 R51.9 [id number] Priti Del Real, NATHEN casas [address] [place] [address] 08/21/2022 09:12:08 08/21/2022 09:46:28 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 5235661916 2289134 M26.631 Myofascial pain 94010213 9 M79.11 Pain of le ft temporomandibular joint 7483075135 5632524 M26.622 Temporal headache 025184 06 R51.9 [id number] NATHEN Pierre [address] [place] [address] 08/26/2022 09:13:28 08/26/2022 09:46:44 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 9688306284 3134731 M26.631 Myofascial pain 30629208 9 M79.11 Pain of le ft temporomandibular joint 1865505520 4107649 M26.622 Temporal headache 473814 06 R51.9 [id number] JOSAFAT JOHNSON, S [address] [address] 08/27/2022 10:24:58 08/27/2022 11:08:55 Pain of left temporomandibular joint 7583758150 2107537 M26.622 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 9110673826 9732077 M26.631 Myofascial pain 64167593 9 M79.11 Temporal headache 195146 06 R51.9 [id number] NATHEN Pierre [address] [place] [address] 09/08/2022 16:59:31 09/08/2022 17:39:25 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 8874703889 3785848 M26.631 Myofascial pain 45148791 9 M79.11 Pain of le ft temporomandibular joint 1218553838 6134456 M26.622 Temporal headache 760704 06 R51.9 Health Concerns Section Related Observation LastModified by Organization Detai ls LastModified Time None Recorded Concern Status LastModified by Organization Details LastModified Time None Recorded Advance Directives Directive None Recorded Payers Encounter Date Sequence Insurance Name Policy Number Policy In[place] Covered Member ID Inman Member ID Guarantor Name 08/05/2022 1 [employer] [id number] Fiordaliza L [place] [id number] Fi[place]iza [place] 08/21/2022 1 [employer] [id number] Fiordaliza L [place] [id number] Fiordaliza [place] 08/26/2022 1 [employer] [id number] Fiordaliza L [place] [id number] Fiordaliza [place] 08/27/2022 1 [employer] [id number] Fiordaliza L [place] [id number] Fiordaliza [place] 09/08/2022 1 [employer] [id number] Fiordaliza L [place] [id number] Fiordaliza [place] Notes Date Note Type [...] tingling, vision changes, swallowing difficulty. 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 Medrol dosepak - no change as of day 5, methocarbamol - no significant change. Ibuprofen helps with KIMBALL more than Medrol but not the jaw. Patient Goals include: resolve the pain. Patient Reported Outcome [id number] (out of 80): 08/04=38 Priti Del Real DPT [address] [facility] [address], [place], [address], [facility] 08/05/2022 10:57:14 08/21/2022 text/html HPI Notes: Pt reports the headaches are gone. Not taking any OTC meds. Priti Del Real DPT [address] [facility] [address], [place], [address], [facility] 08/21/2022 09:51:27 08/26/2022 text/html HPI Notes: Pt reports still not having HAs, did have one after last session. 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 Priti Del Real DPT [address] [facility] [address], [place], [address], [facility] 08/26/2022 [...] the dry needling helped. JOSAFAT JOHNSON DDS [address] [facility] [address], [place], [address], [facility] 08/27/2022 13:12:14 09/08/2022 text/html HPI Notes: Pt reports having a headache and pain after DN for a day and then is better overall. L side not very tender to touch anymore. Priti Del Real DPT [address] [facility] [address], [place], [address], [facility] 09/08/2022 17:58:54 OBGyn Episode No OBEpisode recorded.
== END 2024-02-12 23:39 | disposition home or self-care (01) ==
LOC: ED 21:51
PROVIDERS: Emergency Provider Family Medicine; PCP Family Medicine
DX: K59.00 Constipation, unspecified (principal)
CPT/HCPCS: 99283; A9270

== ENCOUNTER 2024-03-16 08:30 | Outpatient (RCR) | payer OTHER, SELFPAY ==
[2023-12-16 15:04] LABS: Creatinine* 0.8 mg/dL (0.5-1.5); Est. Creatinine Clearance* 72.63; Estimated Glomerular Filt Rate 86 ml/min
[2023-12-16 15:05] LABS: Calcium* 9.5 mg/dL (8.4-10.6)
[2023-12-18 21:23] LABS: Estradiol Premenol Female <20 pg/mL
[2023-12-19 09:19] LABS: Follicle Stimulating Hormone 92.7 IU/L
--- NOTE | 2023-12-31 14:12 | ONC.NURNOTE ---
Patient has obtained dental clearance for her Zometa. She will drop the form off on 01/11 when she is here for her DEXA scan. She will begin Zometa on 01/13. Patient verbalizes understanding of plan.
--- NOTE | 2024-01-07 12:36 | URNOTE ---
Per Sheyla Browne at [facility] on behalf of [facility], prior auth is not required for Zometa ([id number]). Call ref #[id number]
[2024-01-14 09:03] VITALS: BP 125/72; PULSE 60; RESP 16; TEMP 36.2; O2SAT 98
[2024-01-14] MEDS: ZOLEDRONIC ACID 4 MG in 0.9 % SODIUM CHLORIDE 100 ml 100 ML 420 MG IVPB (09:27)
--- NOTE | 2024-01-27 10:04 | ONC.NURNOTE ---
Patient called to let us know that her reconstruction surgery with Dr. Thomas for 01/24 had been cancelled due to a new rash. She reports starting before bed on 01/22, she noted a rash around her breast incisions. It was quite red and itchy. When she reported for her surgery, they decided that it would be best to delay until the rash clears up. Patient is wondering if this could be a side effect of her Anastrozole but her PCP felt it was more likely a contact dermatitis and gave her an Rx for Prednisone. Patient is scheduled to see her plastic surgeon today and will let us know when her reconstruction surgery gets rescheduled.
--- NOTE | 2024-02-17 14:51 | ONC.NURNOTE ---
Call to patient to see how she is tolerating Anastrozole. Patient denies any side effects, questions or concerns. Verbalizes plan for follow up 03/17.
== END 2024-06-13 23:59 | disposition home or self-care (01) ==
LOC: CCIC 08:30
PROVIDERS: Internal Medicine Hematology & Oncology; PCP Family Medicine; Referring Provider Family Medicine; Visit Provider Physician Assistant
DX: C50.912 Malignant neoplasm of unspecified site of left female breast (principal); Z17.0 Estrogen receptor positive status [ER+]; Z79.811 Long term (current) use of aromatase inhibitors; Z90.13 Acquired absence of bilateral breasts and nipples
CPT/HCPCS: 36415; 82310; 82565; 82670; 83001; 96374; 99202; 99205; 99214; G0463; J3489

== ENCOUNTER 2024-03-20 07:48 | Outpatient (CLI) | payer OTHER, SELFPAY ==
--- NOTE | 2024-03-20 09:37 | W.ANESCHARGE ---
Anesthesia Charges Start Date/Time Anesthesia Start Date: 03/20/24 Anesthesia Start Time: 08:54 Stop Date/Time Anesthesia Stop Date: 03/20/24 Anesthesia Stop Time: 09:33
--- NOTE | 2024-03-20 09:47 | W.ANESCHARGE ---
Anesthesia Charges Start Date/Time Anesthesia Start Date: 03/20/24 Anesthesia Start Time: 08:54 Stop Date/Time Anesthesia Stop Date: 03/20/24 Anesthesia Stop Time: 09:33
== END 2024-03-20 07:49 | disposition home or self-care (01) ==
LOC: OP CLINIC 07:48
PROVIDERS: PCP Family Medicine; Visit Provider Surgery
DX: Z12.11 Encounter for screening for malignant neoplasm of colon (principal); D12.0 Benign neoplasm of cecum; Z86.0100 Personal history of colon polyps, unspecified; Z80.0 Family history of malignant neoplasm of digestive organs
CPT/HCPCS: 00811; 45385; 88305; J2704

== ENCOUNTER 2024-04-25 08:15 | Outpatient (CLI) | payer OTHER, SELFPAY | END 2024-04-25 08:16 | disposition home or self-care (01) | LOC: FBOREF 08:18 | PROVIDERS: PCP Family Medicine; Visit Provider Family Medicine | DX: Z13.228 Encounter for screening for other metabolic disorders (principal); Z13.0 Encounter for screening for diseases of the blood and blood-forming organs and certain disorders involving the immune mechanism | CPT/HCPCS: 80048; 85025 ==

== ENCOUNTER 2024-09-08 15:00 | Outpatient (RCR) | payer OTHER, SELFPAY | END 2024-09-08 16:49 | disposition home or self-care (01) | PROVIDERS: PCP Family Medicine; Visit Provider Surgery | DX: C50.912 Malignant neoplasm of unspecified site of left female breast (principal); I97.2 Postmastectomy lymphedema syndrome; Z51.89 Encounter for other specified aftercare | CPT/HCPCS: 97110; 97140; 97161; 97164; 97165; 97530; 97535 ==

== ENCOUNTER 2024-11-27 08:40 | Outpatient (RCR) | payer BC, OTHER, SELFPAY ==
[2024-07-13 13:05] LABS: Calcium* 10.2 mg/dL (8.4-10.6); Creatinine* 1.0 mg/dL (0.5-1.5); Estimated Glomerular Filt Rate 65 ml/min
[2024-07-13] MEDS: ZOLEDRONIC ACID 4 MG in 0.9 % SODIUM CHLORIDE 100 ml 100 ML 400 MG IVPB (14:25)
--- NOTE | 2024-08-07 11:33 | ONC.NURNOTE ---
Pt called to cancel appt with Flor Kerr PA-C on 08/07/24 due to family emergency. Pt will call to reschedule.
== END 2025-01-09 23:59 | disposition home or self-care (01) ==
LOC: CCIC 08:40
PROVIDERS: PCP Family Medicine; Referring Provider Family Medicine; Visit Provider Physician Assistant
DX: C50.912 Malignant neoplasm of unspecified site of left female breast (principal); Z17.0 Estrogen receptor positive status [ER+]; Z90.13 Acquired absence of bilateral breasts and nipples; Z79.811 Long term (current) use of aromatase inhibitors
CPT/HCPCS: 36415; 82310; 82565; 96374; 99213; 99214; G0463; J3489

== ENCOUNTER 2024-12-11 13:53 | Outpatient (CLI) | payer OTHER, SELFPAY | END 2024-12-11 13:54 | disposition home or self-care (01) | PROVIDERS: PCP Family Medicine; Visit Provider Family Medicine | DX: Z13.6 Encounter for screening for cardiovascular disorders (principal); Z01.818 Encounter for other preprocedural examination | CPT/HCPCS: 80048; 80061; 85025 ==